=== PATIENT | male | born 1985 | race African-American/Black ===

== ENCOUNTER 2016-08-29 21:10 | Emergency (ER) | payer MEDICAID ==
[2016-08-29 21:15] VITALS: BP 130/75
[2016-08-29] MEDS ORDERED: predniSONE 20 MG TABLET PO STA (21:20)
[2016-08-29] MEDS ORDERED: IPRATROPIUM/ALBUTEROL 3 ML NEB INH STA (21:20)
--- NOTE | 2016-08-29 21:21 | ED Physician Documentation ---
PD HPI DYSPNEA - Stated complaint Stated Complaint: SOA - Chief complaint Chief Complaint: Resp - History obtained from History obtained from: Patient - History of Present Illness Timing - onset: Other (31-year-old with history of asthma, over the last few days because of environmental allergens and mowing the grass has gotten steadily worse culminating tonight in significant shortness of breath and a few episodes of posttussive emesis with white sputum but no fevers. He has been hospitalized for asthma before, but only as a child. On the daily basis he takes Advair and occasional albuterol.) Review of Systems Ten Systems: 10 systems reviewed and negative Constitutional: denies: Fever, Chills Nose: denies: Rhinorrhea / runny nose, Congestion Throat: denies: Sore throat Cardiac: denies: Chest pain / pressure, Palpitations, Pedal edema, Calf pain Respiratory: reports: Dyspnea, Cough. denies: Hemoptysis, Wheezing PD PAST MEDICAL HISTORY - Past Medical History Respiratory: Asthma - Past Surgical History Past Surgical History: Yes Ortho: Other - Present Medications Home Medications: Ambulatory Orders Medication Instructions Recorded Confirmed Albuterol Sulfate [Albuterol 2 puffs IH Q4HR PRN #1 [email or web address] 04/17/14 12/07/15 Sulfate Hfa] Fluticasone/Salmeterol 250/50 1 puffs INH BID #1 inhaler 11/13/14 12/07/15 [Advair 250 Mcg/50 Mcg] Albuterol Sulfate [Proventil Hfa 1 - 2 puffs INH Q4H PRN #1 inhaler 12/07/15 Inhaler] Cetirizine [ZyrTEC] 1 tab PO DAILY 12/07/15 12/07/15 predniSONE [Deltasone] 60 mg PO DAILY 5 Days 08/29/16 - Allergies Allergies/Adverse Reactions: Allergies Allergy/AdvReac Type Severity Reaction Status Date / Time No Known Drug Allergies Allergy Verified 12/07/15 09:52 - Social History Does the pt smoke?: No Smoking Status: Never smoker Does the pt drink ETOH?: Yes Does the pt have substance abuse?: Yes - Family History Family history: reports: Non contributory - Immunizations Immunizations are current?: Yes - POLST Patient has POLST: No PD ED PE NORMAL - Vitals Vital signs reviewed: Yes - General General: Alert and oriented X 3, Other (Breathing pretty hard but speaking full sentences) - HEENT HEENT: PERRL, Pharynx benign - Neck Neck: Supple, no meningeal sign, No bony TTP - Cardiac Cardiac: RRR, No murmur - Respiratory Respiratory: Other (Diminished throughout with mild respiratory distress) - Abdomen Abdomen: Soft, Non tender - Back Back: No CVA TTP, No spinal TTP - Derm Derm: Normal color, Warm and dry - Extremities Extremities: No edema, No calf tenderness / cord - Neuro Neuro: Alert and oriented X 3, Normal speech - Psych Psych: Normal mood, Normal affect Results - Vitals Vitals: Vital Signs - 24 hr 08/29/16 08/29/16 08/29/16 21:12 21:23 21:25 Temperature 36.9 C Heart Rate 97 121 H 105 H Respiratory 36 H 24 Rate Blood Pressure 130/75 O2 Saturation 100 88 L 08/29/16 08/29/16 21:50 22:14 Temperature Heart Rate 100 104 H Respiratory 22 18 Rate Blood Pressure O2 Saturation 94 Oxygen O2 Source Room air PD MEDICAL DECISION MAKING - ED course ED course: This 31-year-old gentleman presents with an asthma exacerbation. He was administered a duo neb with significant improvement but still pretty tight on exam and after a second, albuterol, with good better, no respiratory distress, and only very mild wheeze on exam with good air motion. Departure - Departure Disposition: 01 Home, Self Care Clinical Impression: Asthma exacerbation Condition: Good Record reviewed to determine appropriate education?: Yes Instructions: Asthma Dc Prescriptions: predniSONE [Deltasone] 60 mg PO DAILY 5 Days Comments: Call your doctor to arrange a follow up appointment. Make the next available appointment. In the interim return anytime if worse or if new symptoms develop.
[2016-08-29] MEDS ORDERED: IPRATROPIUM/ALBUTEROL 3 ML NEB INH ONE (21:23)
[2016-08-29] MEDS ORDERED: predniSONE 20 MG TABLET ONE (21:25)
[2016-08-29] MEDS ORDERED: ALBUTEROL NEB 2.5 MG/3 ML INH STA (21:47)
[2016-08-29] MEDS ORDERED: ALBUTEROL NEB 2.5 MG/3 ML INH ONE (21:48)
== END 2016-08-29 22:39 | disposition home or self-care (01) ==
LOC: ED 21:10
DX: J45.901 Unspecified asthma with (acute) exacerbation (principal)
CPT/HCPCS: 94640; 99283; 99284; J7512; J7613; J7620

== ENCOUNTER 2016-09-23 14:58 | Outpatient (CLI) | payer MEDICAID ==
[2016-09-23 18:51] LABS: BASOPHILS % (AUTO) 0.7 %; EOSINOPHILS # (AUTO) 0.4 10^3/uL (0.0-0.7); EOSINOPHILS % (AUTO) 6.4 %; HCT - HEMATOCRIT 41.1 % (42.0-52.0); HGB - HEMOGLOBIN 13.9 g/dL (14.0-18.0); LYMPHOCYTES # (AUTO) 1.4 10^3/uL (1.5-3.5); LYMPHOCYTES % (AUTO) 21.3 %; MEAN CORPUSCULAR HEMOGLOBIN 29.7 pg (27.0-31.0); MEAN CORPUSCULAR HGB CONC 33.7 g/dL (32.0-36.0); MEAN PLATELET VOLUME 8.5 fL (7.4-11.4); MONOCYTES # (AUTO) 0.4 10^3/uL (0.0-1.0); MONOCYTES % (AUTO) 6.2 %; NEUTROPHILS # (AUTO) 4.5 10^3/uL (1.5-6.6); NEUTROPHILS % (AUTO) 65.4 %; NUCLEATED RED BLOOD CELLS AUTO 0.2 /100WBC; RED BLOOD COUNT 4.67 10^6/uL (4.70-6.10); RED CELL DISTRIBUTION WIDTH 12.6 % (12.0-15.0); UNCORRECTED WHITE BLOOD COUNT 6.8 x10^3/uL; WHITE BLOOD COUNT 6.8 x10^3/uL (4.8-10.8)
[2016-09-23 19:07] LABS: ALBUMIN/GLOBULIN RATIO 1.3 (1.0-2.2); BILIRUBIN,TOTAL 0.5 mg/dL (0.2-1.0); BUN - BLOOD UREA NITROGEN 16 mg/dL (6-20); CALCIUM 9.6 mg/dL (8.5-10.3); CARBON DIOXIDE - CO2 24 mmol/L (21-32); CHLORIDE 106 mmol/L (101-111); CHOL/HDL RATIO 3.1 (<5.0); CHOLESTEROL 168 mg/dL; CREATININE 0.9 mg/dL (0.6-1.2); GFR - MDRD 121 (>89); GLUCOSE 87 mg/dL (70-100); HDL CHOLESTEROL 55 mg/dL; LDL/HDL RATIO 1.8 (<3.6); POTASSIUM 3.8 mmol/L (3.5-5.0); SODIUM 139 mmol/L (135-145); TOTAL PROTEIN 8.2 g/dL (6.7-8.2); TRIGLYCERIDES 78 mg/dL; VLDL CHOLESTEROL 16 mg/dL
== END 2016-09-23 14:59 | disposition home or self-care (01) ==
LOC: LAB.N 14:58
PROVIDERS: ATTEND Physician Assistant
DX: I10 Essential (primary) hypertension (principal)
CPT/HCPCS: 36415; 80050; 80061

== ENCOUNTER 2017-11-22 22:26 | Emergency (ER) | payer MEDICAID ==
--- NOTE | 2017-11-22 22:44 | ED Physician Documentation ---
PD HPI DYSPNEA - Stated complaint Stated Complaint: SOA - Chief complaint Chief Complaint: Resp - History obtained from History obtained from: Patient - History of Present Illness Timing - onset: Today Timing - details: Gradual onset Pain level max: 0 Pain level now: 0 Improved by: Rest Worsened by: Exertion Associated symptoms: Cough, Wheezing. No: Fever Similar symptoms before: Diagnosis (asthma) Recently seen: Not recently seen - Additional information Additional information: c/o dyspnea, wheezing c/w asthma exacerbation. not responding to MDI (albuterol) Review of Systems Constitutional: reports: Reviewed and negative Nose: reports: Rhinorrhea / runny nose, Congestion Throat: denies: Sore throat Cardiac: reports: Reviewed and negative Respiratory: reports: Dyspnea, Cough, Wheezing GI: reports: Reviewed and negative PD PAST MEDICAL HISTORY - Past Medical History Respiratory: Asthma - Past Surgical History Past Surgical History: Yes Ortho: Other - Present Medications Home Medications: Ambulatory Orders Medication Instructions Recorded Confirmed Albuterol Sulfate [Albuterol 2 puffs IH Q4HR PRN #1 [email or web address] 04/17/14 12/07/15 Sulfate Hfa] Fluticasone/Salmeterol 250/50 1 puffs INH BID #1 inhaler 11/13/14 12/07/15 [Advair 250 Mcg/50 Mcg] Albuterol Sulfate [Proventil Hfa 1 - 2 puffs INH Q4H PRN #1 inhaler 12/07/15 Inhaler] Cetirizine [ZyrTEC] 1 tab PO DAILY 12/07/15 12/07/15 predniSONE [Deltasone] 60 mg PO DAILY 5 Days tablet 08/29/16 Albuterol 2.5 mg INH Q4H PRN #30 neb 11/22/17 predniSONE [Prednisone] 40 mg PO DAILY #8 tablet 11/22/17 - Allergies Allergies/Adverse Reactions: Allergies Allergy/AdvReac Type Severity Reaction Status Date / Time No Known Drug Allergies Allergy Verified 12/07/15 09:52 - Social History Does the pt smoke?: No Smoking Status: Never smoker Does the pt drink ETOH?: Yes Does the pt have substance abuse?: Yes - Immunizations Immunizations are current?: Yes - POLST Patient has POLST: No PD ED PE NORMAL - Vitals Vital signs reviewed: Yes - General General: Alert and oriented X 3, No acute distress, Well developed/nourished - Cardiac Cardiac: RRR, No murmur - Respiratory Respiratory: No respiratory distress - Extremities Extremities: No edema PD ED PE EXPANDED - Respiratory Respiratory: Wheezing (I/E wheezing bilaterally) Results - Vitals Vitals: Oxygen O2 Source Room air - Rads (name of study) chest xray Radiology: Prelim report reviewed, See rad report PD MEDICAL DECISION MAKING - ED course Complexity details: reviewed results, re-evaluated patient, considered differential, d/w patient ED course: patient reported significant improvement after duoneb, prednisone. reexam of lungs reveals end-expiratory wheezing bilaterally but good aeration and significantly less wheezing than on presentation - Sepsis Event Vital Signs: Oxygen O2 Source Room air Departure - Departure Disposition: 01 Home, Self Care Clinical Impression: Asthma Condition: Good Instructions: ED Reactive Airway Disease, ED Inhaler Use Prescriptions: Albuterol 2.5 mg INH Q4H PRN #30 neb PRN Reason: Wheezing predniSONE [Prednisone] 40 mg PO DAILY #8 tablet Forms: Activity restrictions Discharge Date/Time: 11/23/17 00:05
[2017-11-22] MEDS ORDERED: predniSONE 20 MG TABLET PO STA (22:53)
[2017-11-22] MEDS ORDERED: IPRATROPIUM/ALBUTEROL 3 ML NEB INH STA (22:53)
--- NOTE | 2017-11-22 23:30 | XRAY Report ---
Reason: cough, fever Procedure Date: 11/22/2017 Accession Number: [id number] / [id number] Procedure: XR - Chest 2 View X-Ray CPT Code: 20806 FULL RESULT: EXAM: CHEST RADIOGRAPHY EXAM DATE: 11/22/2017 11:07 PM. CLINICAL HISTORY: Cough, fever. COMPARISON: None. TECHNIQUE: 2 views. FINDINGS: Lungs/Pleura: No focal opacities evident. No pleural effusion. No pneumothorax. Normal volumes. Mediastinum: Heart and mediastinal contours are unremarkable. Other: None. IMPRESSION: Normal 2-view chest radiography. RADIA
[2017-11-23 00:06] VITALS: BP 132/77
== END 2017-11-23 00:05 | disposition home or self-care (01) ==
LOC: ED 22:26
DX: J45.909 Unspecified asthma, uncomplicated (principal)
CPT/HCPCS: 71046; 94640; 99283; J7512

== ENCOUNTER 2018-06-17 18:26 | Emergency (ER) | payer MEDICAID ==
[2018-06-17 18:36] VITALS: BP 136/87
--- NOTE | 2018-06-17 18:49 | ED Physician Documentation ---
History of Present Illness - Stated complaint Stated Complaint: FEVER/COUGH/ABD PX - Chief complaint Chief Complaint: Heent - History obtained from History obtained from: Patient - History of Present Illness Timing: Yesterday - Additonal information Additional information: Patient is a previously healthy 33-year-old male presenting with concern for flu. Patient reports that his daughter was diagnosed with the flu several days ago and yesterday he began to experience fever of greater than 101 and 102 that he treated with Tylenol, as well as general muscle aches, dry cough, upset stomach, and sore throat. Most of his symptoms have subsided. Patient denies headache, rhinorrhea, nasal congestion, ear pain, vomiting, urinary changes, stool changes, or rash.There are no known improving or worsening factors to his symptoms. Review of Systems Constitutional: reports: Fever, Myalgias PD PAST MEDICAL HISTORY - Past Medical History Respiratory: Asthma - Past Surgical History Past Surgical History: Yes Ortho: Other - Present Medications Home Medications: Ambulatory Orders Medication Instructions Recorded Confirmed Albuterol Sulfate [Albuterol 2 puffs IH Q4HR PRN #1 hfa.[email or web address] 04/17/14 12/07/15 Sulfate Hfa] Fluticasone/Salmeterol 250/50 1 puffs INH BID #1 inhaler 11/13/14 12/07/15 [Advair 250 Mcg/50 Mcg] Albuterol Sulfate [Proventil Hfa 1 - 2 puffs INH Q4H PRN #1 inhaler 12/07/15 Inhaler] Cetirizine [ZyrTEC] 1 tab PO DAILY 12/07/15 12/07/15 RX: predniSONE [Deltasone] 60 mg PO DAILY 5 Days tablet 08/29/16 RX: Albuterol 2.5 mg INH Q4H PRN #30 neb 11/22/17 predniSONE [Prednisone] 40 mg PO DAILY #8 tablet 11/22/17 Oseltamivir [Tamiflu] 75 mg PO BID #10 capsule 06/17/18 - Allergies Allergies/Adverse Reactions: Allergies Allergy/AdvReac Type Severity Reaction Status Date / Time No Known Drug Allergies Allergy Verified 12/07/15 09:52 - Social History Does the pt smoke?: No Smoking Status: Never smoker Does the pt drink ETOH?: Yes Does the pt have substance abuse?: Yes - Immunizations Immunizations are current?: Yes - POLST Patient has POLST: No PD ED PE NORMAL - General General: Alert and oriented X 3, No acute distress, Well developed/nourished - HEENT HEENT: Atraumatic, PERRL, Moist mucous membranes, Pharynx benign - Neck Neck: Supple, no meningeal sign - Cardiac Cardiac: RRR, No murmur - Respiratory Respiratory: No respiratory distress, Clear bilaterally - Abdomen Abdomen: Normal bowel sounds, Soft, Non tender, Non distended - Extremities Extremities: No deformity, No tenderness to palpate - Neuro Neuro: Alert and oriented X 3, No motor deficit, No sensory deficit - Psych Psych: Normal mood, Normal affect Results - Vitals Vitals: Vital Signs - 24 hr 06/17/18 18:34 Temperature 37.0 C Heart Rate 117 H Respiratory 18 Rate Blood Pressure 136/87 H O2 Saturation 94 Oxygen O2 Source Room air - Labs Labs: Laboratory Tests 06/17/18 18:40 Influenza A (Rapid) Negative Influenza B (Rapid) Negative PD MEDICAL DECISION MAKING - ED course Complexity details: reviewed results, considered differential, d/w patient ED course: Patient presenting with concern for flu, particularly as his daughter had recent diagnosis. Patient describes viral-like syndrome, particularly URI or bronchitis. Have lower suspicion for pneumonia or other intra-abdominal pathology. No other obvious signs of infectious process, particularly bacterial infection on exam. Flu swab returned negative, but given patient's symptomatology and recent exposure, offered Tamiflu as he would still be in the treatment window for such. However, described limitations and side effects of Tamiflu. Also Discussed supportive cares, return precautions, and appropriate follow-up. Patient voiced understanding and is comfortable with plan. Departure - Departure Disposition: 01 Home, Self Care Clinical Impression: Viral illness Condition: Good Instructions: ED Viral Syndrome Follow-Up: your,doctor [Other] - Within 3 Days Prescriptions: Oseltamivir [Tamiflu] 75 mg PO BID #10 capsule Comments: May take Tamiflu as prescribed for influenza treatment. Also recommend other supportive cares including ibuprofen/Tylenol, hydration, rest, and follow-up with primary care physician. If symptoms worsen or you have other concerns, please return to the ED immediately. Discharge Date/Time: 06/17/18 19:08
== END 2018-06-17 19:08 | disposition home or self-care (01) ==
LOC: ED 18:26
DX: B34.9 Viral infection, unspecified (principal)
CPT/HCPCS: 87275; 87276; 99283

== ENCOUNTER 2019-01-29 12:11 | Outpatient (CLI) | payer MEDICAID ==
[2019-01-29 18:41] LABS: ALBUMIN 4.5 g/dL (3.2-5.5); ALBUMIN/GLOBULIN RATIO 1.3 (1.0-2.2); ALKALINE PHOSPHATASE 47 IU/L (42-121); ALT ALANINE AMINOTRANSFERASE 44 IU/L (10-60); AST ASPARTATE AMINOTRANSFERASE 23 IU/L (10-42); BILIRUBIN,TOTAL 0.6 mg/dL (0.2-1.0); BUN - BLOOD UREA NITROGEN 14 mg/dL (6-20); CALCIUM 9.3 mg/dL (8.5-10.3); CARBON DIOXIDE - CO2 29 mmol/L (21-32); CHLORIDE 102 mmol/L (101-111); CHOL/HDL RATIO 3.3 (<5.0); CHOLESTEROL 192 mg/dL; CREATININE 0.9 mg/dL (0.6-1.2); GFR - MDRD 119 (>89); GLUCOSE 106 mg/dL (70-100); HDL CHOLESTEROL 59 mg/dL; LDL CHOLESTEROL,CALCULATED 115 mg/dL; LDL/HDL RATIO 1.9 (<3.6); SODIUM 138 mmol/L (135-145); TOTAL PROTEIN 8.1 g/dL (6.7-8.2); VLDL CHOLESTEROL 18 mg/dL
== END 2019-01-29 23:59 | disposition home or self-care (01) ==
LOC: LAB.N 12:11
PROVIDERS: ATTEND Nurse Practitioner Gerontology
DX: I10 Essential (primary) hypertension (principal); Z13.9 Encounter for screening, unspecified
CPT/HCPCS: 36415; 80053; 80061; 83721

== ENCOUNTER 2019-03-25 08:34 | Emergency (ER) | payer MEDICAID ==
[2019-03-25 08:42] VITALS: BP 127/104
--- NOTE | 2019-03-25 09:15 | ED Physician Documentation ---
History of Present Illness - Stated complaint Stated Complaint: LT EAR PRESSURE - Chief complaint Chief Complaint: Heent - Additonal information Additional information: This is a 34-year-old male with a history of asthma who presents with left ear pressure. Patient has had cough and congestion and runny nose for several days but yesterday at work he began having some pressure in his left ear and his hearing feels very muffled. He has not had a measured fever, he is not any drainage from the ear. Review of Systems Ears: reports: Ear pain Nose: reports: Rhinorrhea / runny nose Respiratory: reports: Cough PD PAST MEDICAL HISTORY - Past Medical History Cardiovascular: Hypertension Respiratory: Asthma Endocrine/Autoimmune: None GI: None : None Psych: Anxiety Musculoskeletal: None - Past Surgical History Past Surgical History: Yes Ortho: Other - Present Medications Home Medications: Ambulatory Orders Medication Instructions Recorded Confirmed Fluticasone/Salmeterol 250/50 1 puffs INH BID #1 inhaler 11/13/14 03/25/19 [Advair 250 Mcg/50 Mcg] Albuterol Sulfate [Proventil Hfa 1 - 2 puffs INH Q4H PRN #1 inhaler 12/07/15 03/25/19 Inhaler] Cetirizine [ZyrTEC] 1 tab PO DAILY 12/07/15 03/25/19 Amoxicillin 500 mg PO BID #14 capsule 03/25/19 Benzonatate [Tessalon Perle] 100 - 200 mg PO TID PRN #30 capsule 03/25/19 hydroCHLOROthiazide 25 mg PO DAILY 03/25/19 03/25/19 [Hydrochlorothiazide] - Allergies Allergies/Adverse Reactions: Allergies Allergy/AdvReac Type Severity Reaction Status Date / Time No Known Drug Allergies Allergy Verified 03/25/19 08:40 - Social History Does the pt smoke?: No Smoking Status: Former smoker Does the pt drink ETOH?: Yes Does the pt have substance abuse?: Yes Substance Use and Type: Marijuana - Immunizations Immunizations are current?: Yes - POLST Patient has POLST: No PD ED PE NORMAL - Vitals Vital signs reviewed: Yes - General General: Alert and oriented X 3 - HEENT HEENT: PERRL, Other (Left tympanic membrane is opaque, erythematous, and slightly bulging. Right tympanic membrane is flat and clear. Bilateral external canals are normal in appearance) - Neck Neck: Supple, no meningeal sign - Cardiac Cardiac: RRR - Respiratory Respiratory: No respiratory distress, Clear bilaterally, Other (Intermittent cough) - Abdomen Abdomen: Non distended - Extremities Extremities: No deformity - Neuro Neuro: Alert and oriented X 3 Results - Vitals Vitals: Vital Signs - 24 hr 03/25/19 08:40 Temperature 37.2 C Heart Rate 82 Respiratory 18 Rate Blood Pressure 127/104 H O2 Saturation 97 Oxygen O2 Source Room air PD MEDICAL DECISION MAKING - ED course Complexity details: re-evaluated patient ED course: Patient is well-appearing on examination, he does have an obvious left otitis media which appears suppurative. I discussed treatment with antibiotics and decongestants, I also reviewed return precautions and primary care follow-up. Patient agreed this plan and was discharged home. Departure - Departure Disposition: , Self Care Clinical Impression: Otitis media Qualifiers: Otitis media type: suppurative Chronicity: acute Laterality: left Recurrence: not specified as recurrent Spontaneous tympanic membrane rupture: without spontaneous rupture Qualified Code(s): H66.002 - Acute suppurative otitis media without spontaneous rupture of ear drum, left ear Condition: Good Instructions: ED Otitis Media Acute Adult Follow-Up: Joanne Bedoya ARNP [Primary Care Provider] - Prescriptions: Amoxicillin 500 mg PO BID #14 capsule Benzonatate [Tessalon Perle] 100 - 200 mg PO TID PRN #30 capsule PRN Reason: Cough Comments: You appear to have a ear infection on the left side, if you are having persistent symptoms despite the antibiotic, follow-up with your primary care provider, with new or concerning symptoms return to the emergency department. You may also try a decongestant such as Benadryl or phenylephrine which can be obtained [id number], this may help with the nasal congestion as well Discharge Date/Time: 03/25/19 09:22
== END 2019-03-25 09:22 | disposition home or self-care (01) ==
LOC: ED 08:34
DX: H66.002 Acute suppurative otitis media without spontaneous rupture of ear drum, left ear (principal); I10 Essential (primary) hypertension; Z87.891 Personal history of nicotine dependence
CPT/HCPCS: 99282; 99283

== ENCOUNTER 2019-04-06 06:51 | Emergency (ER) | payer MEDICAID ==
[2019-04-06 07:03] VITALS: BP 169/91
[2019-04-06 07:19] LABS: RAPID STREP SCREEN Negative (Negative)
[2019-04-06] MEDS ORDERED: DEXAMETHASONE 10 MG/ML VIAL PO STA (07:49)
[2019-04-06] MEDS ORDERED: CHERRY SYRUP 10 ML UDC PO ONE (07:49)
--- NOTE | 2019-04-06 07:52 | ED Physician Documentation ---
PD HPI HEENT - Stated complaint Stated Complaint: SORE THROAT - Chief complaint Chief Complaint: Heent - History obtained from History obtained from: Patient - History of Present Illness Timing - onset: Yesterday Timing - duration: Days (1) Timing - details: Gradual onset, Still present Location: Throat Improves: Medication Worsens: Swalllowing Associated symptoms: Congestion, Rhinorrhea, Cough Similar symptoms before: Diagnosis (swollen uvula) Recently seen: Emergency Dept - Additional information Additional information: 34-year-old male with a history of asthma has had a recent otitis he was treated with amoxicillin and seemed to get better and he has now developed swelling to his uvula which he states he has had several times previously. He has a bit of a sore throat with this she is got a bit of a cough he did not have to use his inhaler prior to coming in here. Review of Systems Constitutional: denies: Fever Eyes: denies: Decreased vision Ears: denies: Ear pain Nose: reports: Rhinorrhea / runny nose, Congestion Throat: reports: Sore throat Cardiac: denies: Chest pain / pressure, Palpitations Respiratory: reports: Cough. denies: Dyspnea GI: denies: Vomiting PD PAST MEDICAL HISTORY - Past Medical History Past Medical History: Yes Cardiovascular: Hypertension Respiratory: Asthma Neuro: None Endocrine/Autoimmune: None GI: None : None HEENT: None Psych: Anxiety Musculoskeletal: None Derm: None - Past Surgical History Past Surgical History: Yes Ortho: Other - Present Medications Home Medications: Ambulatory Orders Medication Instructions Recorded Confirmed Fluticasone/Salmeterol 250/50 1 puffs INH BID #1 inhaler 11/13/14 03/25/19 [Advair 250 Mcg/50 Mcg] Albuterol Sulfate [Proventil Hfa 1 - 2 puffs INH Q4H PRN #1 inhaler 12/07/15 03/25/19 Inhaler] Cetirizine [ZyrTEC] 1 tab PO DAILY 12/07/15 03/25/19 Amoxicillin 500 mg PO BID #14 capsule 03/25/19 Benzonatate [Tessalon Perle] 100 - 200 mg PO TID PRN #30 capsule 03/25/19 hydroCHLOROthiazide 25 mg PO DAILY 03/25/19 03/25/19 [Hydrochlorothiazide] Azithromycin [Zithromax] 250 mg PO DAILY #6 tablet 04/06/19 - Allergies Allergies/Adverse Reactions: Allergies Allergy/AdvReac Type Severity Reaction Status Date / Time No Known Drug Allergies Allergy Verified 04/06/19 07:03 - Social History Does the pt smoke?: No Smoking Status: Never smoker Does the pt drink ETOH?: Yes Does the pt have substance abuse?: Yes - Immunizations Immunizations are current?: Yes - POLST Patient has POLST: No PD ED PE NORMAL - Vitals Vital signs reviewed: Yes (hypertensive) - General General: Alert and oriented X 3, No acute distress, Well developed/nourished - HEENT HEENT: Atraumatic, PERRL, EOMI, Other (both TM's are inflamed with proud umbo's and the uvular is swollen and elongated. ) - Neck Neck: Supple, no meningeal sign, No bony TTP - Cardiac Cardiac: RRR, No murmur - Respiratory Respiratory: No respiratory distress, Other (diminished but clear breath sounds. ) - Abdomen Abdomen: Soft, Non tender - Back Back: No CVA TTP, No spinal TTP - Derm Derm: Normal color, Warm and dry, No rash - Extremities Extremities: No deformity, No edema, No calf tenderness / cord - Neuro Neuro: Alert and oriented X 3, clinical microbiologist 2-12 intact, No motor deficit, No sensory deficit, Normal speech Eye Opening: Spontaneous Motor: Obeys Commands Verbal: Oriented GCS Score: 15 - Psych Psych: Normal mood, Normal affect Results - Vitals Vitals: Vital Signs - 24 hr 04/06/19 07:01 Temperature 36.5 C Heart Rate 74 Respiratory 17 Rate Blood Pressure 169/91 H O2 Saturation 97 Oxygen O2 Source Room air - Labs Labs: Laboratory Tests 04/06/19 07:00 Group A Strep Rapid Negative PD MEDICAL DECISION MAKING - ED course Complexity details: reviewed old records, reviewed results, considered differential, d/w patient ED course: 34-year-old male with cough and congestion has otitis on exam and he has a swollen elongated uvula as well. I suspect this is secondary to postnasal drainage and he is administered dexamethasone 10 mg orally his rapid strep is negative. He was treated for otitis with amoxicillin 2 weeks ago and we will change his class of antibiotic to a azithromycin which she has taken successfully previously. Departure - Departure Disposition: 01 Home, Self Care Clinical Impression: Otitis media Qualifiers: Otitis media type: suppurative Chronicity: acute Laterality: bilateral Recurrence: recurrent Spontaneous tympanic membrane rupture: without spontaneous rupture Qualified Code(s): H66.006 - Acute suppurative otitis media without spontaneous rupture of ear drum, recurrent, bilateral Condition: Stable Instructions: ED Otitis Media Acute Adult Follow-Up: Joanne Bedoya ARNP [Primary Care Provider] - Prescriptions: Azithromycin [Zithromax] 250 mg PO DAILY #6 tablet Forms: Activity restrictions
== END 2019-04-06 07:59 | disposition home or self-care (01) ==
LOC: ED 06:51
DX: H66.006 Acute suppurative otitis media without spontaneous rupture of ear drum, recurrent, bilateral (principal); K13.79 Other lesions of oral mucosa; J45.909 Unspecified asthma, uncomplicated; I10 Essential (primary) hypertension
CPT/HCPCS: 87070; 87430; 99283; 99284; A9270

== ENCOUNTER 2019-04-11 11:30 | Emergency (ER) | payer MEDICAID ==
[2019-04-11 11:51] LABS: RAPID STREP SCREEN Negative (Negative)
[2019-04-11 12:24] VITALS: BP 157/105
--- NOTE | 2019-04-11 13:15 | ED Physician Documentation ---
PD HPI HEENT - Stated complaint Stated Complaint: SORE THROAT - Chief complaint Chief Complaint: Heent - History obtained from History obtained from: Patient - History of Present Illness Timing - onset: Yesterday Timing - duration: Days (1) Timing - details: Still present Location: Throat Associated symptoms: No: Fever, Congestion, Rhinorrhea, Unable to swallow - Additional information Additional information: This is a 34-year-old man who presents with his complaints that he had an ear infection that drained and then it went into his throat so he was prescribed a Z-Milton which he just finished day before yesterday. The pain started to return in his throat yesterday. He did do some salt water gargles and now his uvula is swollen. He thinks the pain is more to the left tonsillar region. No fever. No earache. No nasal congestion. He is on a blood pressure medication but says it is hydrochlorothiazide and does not contain an DILLON inhibitor. Review of Systems Constitutional: denies: Fever Ears: denies: Ear pain Nose: denies: Rhinorrhea / runny nose, Congestion Throat: reports: Sore throat Respiratory: denies: Cough PD PAST MEDICAL HISTORY - Past Medical History Cardiovascular: Hypertension Respiratory: Asthma Neuro: None Endocrine/Autoimmune: None GI: None : None HEENT: None Psych: Anxiety Musculoskeletal: None Derm: None - Past Surgical History Past Surgical History: Yes Ortho: Other - Present Medications Home Medications: Ambulatory Orders Medication Instructions Recorded Confirmed Fluticasone/Salmeterol 250/50 1 puffs INH BID #1 inhaler 11/13/14 03/25/19 [Advair 250 Mcg/50 Mcg] Albuterol Sulfate [Proventil Hfa 1 - 2 puffs INH Q4H PRN #1 inhaler 12/07/15 03/25/19 Inhaler] Cetirizine [ZyrTEC] 1 tab PO DAILY 12/07/15 03/25/19 Amoxicillin 500 mg PO BID #14 capsule 03/25/19 Benzonatate [Tessalon Perle] 100 - 200 mg PO TID PRN #30 capsule 03/25/19 hydroCHLOROthiazide 25 mg PO DAILY 03/25/19 03/25/19 [Hydrochlorothiazide] Azithromycin [Zithromax] 250 mg PO DAILY #6 tablet 04/06/19 - Allergies Allergies/Adverse Reactions: Allergies Allergy/AdvReac Type Severity Reaction Status Date / Time No Known Drug Allergies Allergy Verified 04/11/19 11:34 - Social History Does the pt smoke?: No Smoking Status: Former smoker Does the pt drink ETOH?: Yes Does the pt have substance abuse?: Yes Substance Use and Type: Marijuana - Immunizations Immunizations are current?: Yes - POLST Patient has POLST: No PD ED PE NORMAL - Vitals Vital signs reviewed: Yes - General General: Alert and oriented X 3, No acute distress, Well developed/nourished - HEENT HEENT: Atraumatic, PERRL, EOMI, Ears normal, Moist mucous membranes, Pharynx benign, Other (The uvula is mildly edematous and narrow touching the back of the tongue. There is no tonsillar pillar erythema or asymmetry. There is no tonsillar enlargement or exudate.) - Neck Neck: Supple, no meningeal sign, No adenopathy - Cardiac Cardiac: RRR - Respiratory Respiratory: No respiratory distress Results - Vitals Vitals: Vital Signs - 24 hr 04/11/19 04/11/19 11:34 12:23 Temperature 36.9 C 36.7 C Heart Rate 79 80 Respiratory 16 18 Rate Blood Pressure 167/94 H 157/105 H O2 Saturation 98 97 Oxygen O2 Source Room air - Labs Labs: Laboratory Tests 04/11/19 11:37 Group A Strep Rapid Negative PD MEDICAL DECISION MAKING - ED course Complexity details: reviewed results, d/w patient ED course: No indication for antibiotics at this time. Have asked him to contact his primary care provider and ensure that he is not on a DILLON inhibitor causing the angioedema. Stop gargling. Use liquid Benadryl can help as a topical anesthetic to help with the sore throat and possibly help with the angioedema. Return if worsening swelling in the throat, increasing pain and inability to swallow difficulty breathing or other problems arise. Departure - Departure Disposition: 01 Home, Self Care Clinical Impression: Sore throat Angioedema Qualifiers: Encounter type: initial encounter Qualified Code(s): T78.3XXA - Angioneurotic edema, initial encounter Condition: Good Instructions: ED Uvulitis, ED Angioedema Follow-Up: Joanne Bedoya ARNP [Primary Care Provider] - Comments: May use liquid Benadryl as a topical anesthetic and to see if it helps the swelling of the uvula. Avoid gargling. We will contact you with the culture results and start antibiotics if warranted. Contact your primary care provider to make sure that you are not taking an DILLON inhibitor which should be stopped immediately if you are. Return if you have increasing pain, difficulty swallowing, difficulty breathing, fever or other problems arise.
== END 2019-04-11 13:57 | disposition home or self-care (01) ==
LOC: ED 11:30
DX: J02.9 Acute pharyngitis, unspecified (principal); T78.3XXA Angioneurotic edema, initial encounter; I10 Essential (primary) hypertension; Z87.891 Personal history of nicotine dependence
CPT/HCPCS: 87070; 87430; 99283; 99284

== ENCOUNTER 2019-04-14 12:03 | Emergency (ER) | payer MEDICAID ==
[2019-04-14 12:10] VITALS: BP 146/90
[2019-04-14] MEDS ORDERED: ALBUTEROL NEB 2.5 MG/3 ML INH STA (12:42)
[2019-04-14] MEDS ORDERED: IPRATROPIUM/ALBUTEROL 3 ML NEB INH STA (12:42)
[2019-04-14] MEDS ORDERED: predniSONE 20 MG TABLET PO STA (12:42)
--- NOTE | 2019-04-14 12:44 | ED Physician Documentation ---
PD HPI DYSPNEA - Stated complaint Stated Complaint: SOA - Chief complaint Chief Complaint: Resp - History obtained from History obtained from: Patient - History of Present Illness Timing - onset: Other (34-year-old gentleman with asthma, on a normal day (when he is not ill) he will use an inhaler a couple of times and takes low-dose Advair. Trigger includes recent URI, was on a Z-Milton recently. Does not remember the last time he was on steroids. He has been admitted for his asthma but not in the last 15 years or so. Never in ICU. He has been short of breath since yesterday and has been using his nebulizer a lot without much relief. He has a cough but is nonproductive. No fevers.) Review of Systems Constitutional: denies: Fever, Chills Nose: reports: Rhinorrhea / runny nose Throat: denies: Sore throat (better now) Cardiac: denies: Chest pain / pressure, Palpitations Respiratory: reports: Dyspnea, Cough, Wheezing. denies: Hemoptysis PD PAST MEDICAL HISTORY - Past Medical History Past Medical History: Yes Cardiovascular: Hypertension Respiratory: Asthma Neuro: None Endocrine/Autoimmune: None GI: None : None HEENT: None Psych: Anxiety Musculoskeletal: None Derm: None - Past Surgical History Past Surgical History: Yes Ortho: Other - Present Medications Home Medications: Ambulatory Orders Medication Instructions Recorded Confirmed Fluticasone/Salmeterol 250/50 1 puffs INH BID #1 inhaler 11/13/14 03/25/19 [Advair 250 Mcg/50 Mcg] Albuterol Sulfate [Proventil Hfa 1 - 2 puffs INH Q4H PRN #1 inhaler 12/07/15 03/25/19 Inhaler] Cetirizine [ZyrTEC] 1 tab PO DAILY 12/07/15 03/25/19 Benzonatate [Tessalon Perle] 100 - 200 mg PO TID PRN #30 capsule 03/25/19 hydroCHLOROthiazide 25 mg PO DAILY 03/25/19 03/25/19 [Hydrochlorothiazide] Albuterol 2.5 mg INH Q4H PRN #30 neb 04/14/19 Ipratropium/Albuterol [Duoneb] 3 ml INH Q6H PRN #1 b 04/14/19 predniSONE [Deltasone] 20 mg PO [id number] #21 tab 04/14/19 - Allergies Allergies/Adverse Reactions: Allergies Allergy/AdvReac Type Severity Reaction Status Date / Time No Known Drug Allergies Allergy Verified 04/14/19 12:09 - Social History Does the pt smoke?: No Smoking Status: Never smoker Does the pt drink ETOH?: Yes Does the pt have substance abuse?: Yes - Immunizations Immunizations are current?: Yes - POLST Patient has POLST: No PD ED PE NORMAL - Vitals Vital signs reviewed: Yes - General General: Alert and oriented X 3, No acute distress - HEENT HEENT: PERRL, EOMI - Neck Neck: Supple, no meningeal sign, No bony TTP - Cardiac Cardiac: RRR, No murmur - Respiratory Respiratory: No respiratory distress, Other (Audible wheezing at the bedside, but speaking in full sentences, very diminished at the bases and wheezy in the upper lobes.) - Abdomen Abdomen: Non tender - Back Back: No CVA TTP, No spinal TTP - Derm Derm: Normal color, Warm and dry - Extremities Extremities: No edema, No calf tenderness / cord - Neuro Neuro: Alert and oriented X 3, Normal speech Results - Vitals Vitals: Vital Signs - 24 hr 04/14/19 04/14/19 12:06 13:08 Temperature 37.2 C Heart Rate 92 100 Respiratory 18 20 Rate Blood Pressure 146/90 H O2 Saturation 95 Oxygen O2 Source Room air PD MEDICAL DECISION MAKING - ED course ED course: 34-year-old gentleman presents with asthma exacerbation, no evidence of bacterial infection. After 3 nebs he was doing much better and his peak flows improved, still wheezy but requesting discharge. Close follow-up precautions were given. Departure - Departure Disposition: 01 Home, Self Care Clinical Impression: Asthma exacerbation Qualifiers: Asthma severity: moderate Asthma persistence: persistent Qualified Code(s): J45.41 - Moderate persistent asthma with (acute) exacerbation Condition: Good Record reviewed to determine appropriate education?: Yes Instructions: Asthma Dc Prescriptions: Albuterol 2.5 mg INH Q4H PRN #30 neb PRN Reason: Wheezing Ipratropium/Albuterol [Duoneb] 3 ml INH Q6H PRN #1 b PRN Reason: Wheezing predniSONE [Deltasone] 20 mg PO [id number] #21 tab Comments: Call your doctor to arrange a follow-up appointment, make the next available appointment. In the interim, return anytime if worse or if new symptoms develop. Forms: Activity restrictions Discharge Date/Time: 04/14/19 13:39
== END 2019-04-14 13:39 | disposition home or self-care (01) ==
LOC: ED 12:03
DX: J45.41 Moderate persistent asthma with (acute) exacerbation (principal); I10 Essential (primary) hypertension
CPT/HCPCS: 94150; 94640; 94664; 99283; J7512

== ENCOUNTER 2019-04-28 16:22 | Emergency (ER) | payer MEDICAID ==
[2019-04-28 16:30] VITALS: BP 136/102
--- NOTE | 2019-04-28 16:44 | ED Physician Documentation ---
PD HPI HEENT - Stated complaint Stated Complaint: LT EAR PX - Chief complaint Chief Complaint: Heent - History obtained from History obtained from: Patient - History of Present Illness Timing - onset: Other (1 to 2 days of feeling like the left ear is clogged with poor hearing, minimal pain.) Location: Left ear Associated symptoms: Congestion. No: Fever Review of Systems Constitutional: denies: Fever Ears: reports: Loss of hearing, Ear pain. denies: Drainage/discharge, Foreign body Nose: reports: Rhinorrhea / runny nose Throat: denies: Sore throat PD PAST MEDICAL HISTORY - Past Medical History Cardiovascular: Hypertension Respiratory: Asthma Neuro: None Endocrine/Autoimmune: None GI: None : None HEENT: None Psych: Anxiety Musculoskeletal: None Derm: None - Past Surgical History Past Surgical History: Yes Ortho: Other - Present Medications Home Medications: Ambulatory Orders Medication Instructions Recorded Confirmed Fluticasone/Salmeterol 250/50 1 puffs INH BID #1 inhaler 11/13/14 03/25/19 [Advair 250 Mcg/50 Mcg] Albuterol Sulfate [Proventil Hfa 1 - 2 puffs INH Q4H PRN #1 inhaler 12/07/15 03/25/19 Inhaler] Cetirizine [ZyrTEC] 1 tab PO DAILY 12/07/15 03/25/19 Benzonatate [Tessalon Perle] 100 - 200 mg PO TID PRN #30 capsule 03/25/19 hydroCHLOROthiazide 25 mg PO DAILY 03/25/19 03/25/19 [Hydrochlorothiazide] Albuterol 2.5 mg INH Q4H PRN #30 neb 04/14/19 Ipratropium/Albuterol [Duoneb] 3 ml INH Q6H PRN #1 b 04/14/19 predniSONE [Deltasone] 20 mg PO [id number] #21 tab 04/14/19 Guaifenesin/Pseudoephedrne HCl 1 each PO BID PRN #20 tab.er.12h 04/28/19 [Mucinex D ER 600-60 mg Tablet] - Allergies Allergies/Adverse Reactions: Allergies Allergy/AdvReac Type Severity Reaction Status Date / Time No Known Drug Allergies Allergy Verified 04/14/19 12:09 - Social History Does the pt smoke?: No Smoking Status: Never smoker Does the pt drink ETOH?: Yes Does the pt have substance abuse?: Yes - Immunizations Immunizations are current?: Yes - POLST Patient has POLST: No PD ED PE NORMAL - Vitals Vital signs reviewed: Yes - General General: Alert and oriented X 3, No acute distress - HEENT HEENT: Other (Serous otitis on the left without otitis media) - Neck Neck: Supple, no meningeal sign - Neuro Neuro: Alert and oriented X 3, Normal speech Results - Vitals Vitals: Vital Signs - 24 hr 04/28/19 16:28 Temperature 36.9 C Heart Rate 77 Respiratory 18 Rate Blood Pressure 136/102 H O2 Saturation 98 Oxygen O2 Source Room air Departure - Departure Disposition: Home, Self Care Clinical Impression: Serous otitis media Qualifiers: Chronicity: acute Laterality: left Recurrence: not specified as recurrent Qualified Code(s): H65.02 - Acute serous otitis media, left ear Condition: Good Record reviewed to determine appropriate education?: Yes Instructions: ED Otitis Media Serous Adult Prescriptions: Guaifenesin/Pseudoephedrne HCl [Mucinex D ER 600-60 mg Tablet] 1 each PO BID PRN #20 tab.er.12h PRN Reason: congestion Comments: Return if you could develop more pain or fever.
== END 2019-04-28 16:47 | disposition home or self-care (01) ==
LOC: ED 16:22
DX: H65.02 Acute serous otitis media, left ear (principal); I10 Essential (primary) hypertension
CPT/HCPCS: 99282; 99283

== ENCOUNTER 2020-09-07 18:05 | Emergency (ER) | payer MEDICAID ==
[2020-09-07 18:15] VITALS: BP 181/96
--- NOTE | 2020-09-07 19:44 | ED Physician Documentation ---
PD HPI OPHTHO - Stated complaint Stated Complaint: LT EYE PX - Chief complaint Chief Complaint: Heent - History obtained from History obtained from: Patient - History of Present Illness Timing - onset: How many weeks ago (1) Timing - duration: Weeks (1) Timing - details: Gradual onset Pain level max: 3 Pain level now: 2 Location: Left Quality / character: Aching Associated symptoms: Redness, Swelling - Additional information Additional information: 35-year-old male states that he has had swelling and redness to the left lower eyelid. He was seen at the walk-in clinic and placed on erythromycin ointment. He states it is not improving. Has a referral to see an junction maker this week. No drainage. No fevers. No chills. Does not wear contacts or glasses Review of Systems Ten Systems: 10 systems reviewed and negative Constitutional: denies: Fever, Chills Eyes: denies: Decreased vision, Photophobia GI: denies: Vomiting, Diarrhea Skin: denies: Rash Musculoskeletal: denies: Neck pain, Back pain Neurologic: denies: Headache PD PAST MEDICAL HISTORY - Past Medical History Cardiovascular: Hypertension Respiratory: Asthma Neuro: None Endocrine/Autoimmune: None GI: None : None HEENT: None Psych: Anxiety Musculoskeletal: None Derm: None - Past Surgical History Past Surgical History: Yes Ortho: Other - Present Medications Home Medications: Ambulatory Orders Medication Instructions Recorded Confirmed Fluticasone/Salmeterol 250/50 1 puffs INH BID #1 inhaler 11/13/14 03/25/19 [Advair 250 Mcg/50 Mcg] Albuterol Sulfate [Proventil Hfa 1 - 2 puffs INH Q4H PRN #1 inhaler 12/07/15 03/25/19 Inhaler] Cetirizine [ZyrTEC] 1 tab PO DAILY 12/07/15 03/25/19 Benzonatate [Tessalon Perle] 100 - 200 mg PO TID PRN #30 capsule 03/25/19 hydroCHLOROthiazide 25 mg PO DAILY 03/25/19 03/25/19 [Hydrochlorothiazide] Albuterol 2.5 mg INH Q4H PRN #30 neb 04/14/19 Ipratropium/Albuterol [Duoneb] 3 ml INH Q6H PRN #1 b 04/14/19 predniSONE [Deltasone] 20 mg PO [id number] #21 tab 04/14/19 Guaifenesin/Pseudoephedrne HCl 1 each PO BID PRN #20 tab.er.12h 04/28/19 [Mucinex D ER 600-60 mg Tablet] Doxycycline Hyclate 100 mg PO BID #20 09/07/20 Polymyxin B/Trimeth Ophth Drop 1 drops LEFTEYE Q3H 7 Days #1 09/07/20 [Polytrim Ophth Drops] bottle - Allergies Allergies/Adverse Reactions: Allergies Allergy/AdvReac Type Severity Reaction Status Date / Time No Known Drug Allergies Allergy Verified 09/07/20 18:15 - Social History Does the pt smoke?: No Smoking Status: Never smoker Does the pt drink ETOH?: Yes Does the pt have substance abuse?: Yes - Immunizations Immunizations are current?: Yes - POLST Patient has POLST: No PD ED PE NORMAL - Vitals Vital signs reviewed: Yes - General General: Alert and oriented X 3, No acute distress - HEENT HEENT: PERRL, EOMI, Moist mucous membranes, Other (Left lower eyelid, there is swelling to the lateral aspect. No drainage. Mild erythema.) - Derm Derm: Warm and dry - Neuro Neuro: Alert and oriented X 3 Results - Vitals Vitals: Vital Signs - 24 hr 09/07/20 18:09 Temperature 36.7 C Heart Rate 89 Respiratory 18 Rate Blood Pressure 181/96 H O2 Saturation 97 Oxygen O2 Source Room air PD MEDICAL DECISION MAKING - ED course Complexity details: considered differential, d/w patient ED course: Patient with a small stye on the left lower eyelid. He has followed up with ophthalmology this week. There does appear to be cellulitis overlying the area, will trial on doxycycline. We will also change to Polytrim ophthalmic. Recommend warm compresses 4-5 times daily. Patient counseled regarding signs and symptoms for which I believe and urgent re-evaluation would be necessary. Patient with good understanding of and agreement to plan and is comfortable going home at this time This document was made in part using voice recognition software. While efforts are made to proofread this document, sound alike and grammatical errors may occur. No evidence of orbital cellulitis. no pain with EOM Departure - Departure Disposition: 01 Home, Self Care Clinical Impression: Hordeolum Qualifiers: Hordeolum type: unspecified type Laterality: left Eyelid: lower Qualified Code(s): H00.015 - Hordeolum externum left lower eyelid Cellulitis Qualifiers: Site of cellulitis: periorbital Laterality: left Qualified Code(s): L03.213 - Periorbital cellulitis Condition: Good Instructions: ED Cellulitis Facial Follow-Up: Nasim Parra MD [Primary Care Provider] - Prescriptions: Doxycycline Hyclate 100 mg PO BID #20 Polymyxin B/Trimeth Ophth Drop [Polytrim Ophth Drops] 1 drops LEFTEYE Q3H 7 Days #1 bottle Comments: Please follow-up with ophthalmology for further evaluation of the hordeolum. Take the antibiotics as prescribed. Return if you worsen. Discharge Date/Time: 09/07/20 19:49
== END 2020-09-07 19:49 | disposition home or self-care (01) ==
LOC: ED 18:05
DX: H00.015 Hordeolum externum left lower eyelid (principal); L03.213 Periorbital cellulitis; I10 Essential (primary) hypertension
CPT/HCPCS: 99282; 99283

== ENCOUNTER 2021-02-19 08:00 | Outpatient (CLI) | payer MEDICAID | END 2021-02-19 23:59 | disposition home or self-care (01) | LOC: LAB 08:00 | PROVIDERS: ATTEND Nurse Practitioner | DX: R05.3 Chronic cough (principal); Z20.822 Contact with and (suspected) exposure to COVID-19 ==

== ENCOUNTER 2021-04-09 08:00 | Outpatient (CLI) | payer MEDICAID | END 2021-04-09 23:59 | LOC: LAB.N 08:00 | PROVIDERS: ATTEND Physician Assistant | DX: R05.9 Cough, unspecified (principal); R51.9 Headache, unspecified; Z20.822 Contact with and (suspected) exposure to COVID-19 ==

== ENCOUNTER 2021-07-21 07:29 | Emergency (ER) | payer MEDICAID ==
[2021-07-21] MEDS ORDERED: IPRATROPIUM/ALBUTEROL 3 ML NEB INH STA (07:51)
[2021-07-21] MEDS ORDERED: predniSONE 20 MG TABLET PO STA (07:51)
--- NOTE | 2021-07-21 08:01 | ED Physician Documentation ---
History of Present Illness - Stated complaint Stated Complaint: ASTHMA ATTACK - Chief complaint Chief Complaint: Resp - History obtained from History obtained from: Patient - History of Present Illness Timing: How many days ago (2) Pain level max: 3 Pain level now: 2 - Additonal information Additional information: 36-year-old male states he has a longstanding history of asthma. He states that he was mowing the lawn a few days ago when he began to feel tightness in his chest and coughing. Improved with albuterol and Advair, he states that he is using his albuterol more frequently and is still feeling like he is wheezing. He states his daughter also recently had strep pharyngitis and he had a sore throat yesterday. No fevers. No COVID exposure. Worse with exertion, better with rest. Patient states that he recently stopped vaping, but does use marijuana. Review of Systems Constitutional: denies: Fever, Chills Nose: reports: Rhinorrhea / runny nose, Congestion Respiratory: reports: Dyspnea, Wheezing. denies: Cough GI: denies: Nausea, Vomiting, Diarrhea Skin: denies: Rash Musculoskeletal: denies: Neck pain, Back pain PD PAST MEDICAL HISTORY - Past Medical History Cardiovascular: Hypertension Respiratory: Asthma Neuro: None Endocrine/Autoimmune: None GI: None : None HEENT: None Psych: Anxiety Musculoskeletal: None Derm: None - Past Surgical History Past Surgical History: Yes Ortho: Other - Present Medications Home Medications: Ambulatory Orders Medication Instructions Recorded Confirmed Albuterol Sulfate [Proventil Hfa 1 - 2 puffs INH Q4H PRN #1 inhaler 12/07/15 07/21/21 Inhaler] Cetirizine [ZyrTEC] 1 tab PO DAILY 12/07/15 07/21/21 hydroCHLOROthiazide 25 mg PO DAILY 03/25/19 07/21/21 [Hydrochlorothiazide] Albuterol 2.5 mg INH Q4H PRN #30 neb 04/14/19 07/21/21 Ipratropium/Albuterol [Duoneb] 3 ml INH Q6H PRN #1 b 04/14/19 07/21/21 Albuterol Sulf [Ventolin Hfa 1 - 2 puffs INH Q4HR PRN #1 inhaler 07/21/21 Inhaler] predniSONE [Deltasone] 10 mg PO [id number] #42 tab 07/21/21 - Allergies Allergies/Adverse Reactions: Allergies Allergy/AdvReac Type Severity Reaction Status Date / Time oregano Allergy Rash Verified 07/21/21 08:18 - Social History Does the pt smoke?: No Smoking Status: Never smoker Does the pt drink ETOH?: Yes Does the pt have substance abuse?: Yes - Immunizations Immunizations are current?: Yes - POLST Patient has POLST: No PD ED PE NORMAL - Vitals Vital signs reviewed: Yes - General General: Alert and oriented X 3, No acute distress, Well developed/nourished - HEENT HEENT: PERRL, Moist mucous membranes, Pharynx benign - Neck Neck: Supple, no meningeal sign - Cardiac Cardiac: RRR - Respiratory Respiratory: Other (Diffuse wheezing bilaterally) - Abdomen Abdomen: Soft, Non tender, Non distended - Derm Derm: Warm and dry - Extremities Extremities: No edema - Neuro Neuro: Alert and oriented X 3 - Psych Psych: Normal mood, Normal affect Results - Vitals Vitals: Vital Signs - 24 hr 07/21/21 07/21/21 07/21/21 07:31 08:15 09:20 Temperature 37.6 C Heart Rate 91 98 104 H Respiratory 19 23 20 Rate Blood Pressure 169/103 H O2 Saturation 95 07/21/21 07/21/21 09:41 10:10 Temperature Heart Rate 87 99 Respiratory 25 H 25 H Rate Blood Pressure 159/93 H O2 Saturation 97 Oxygen O2 Source Room air - Labs Labs: Laboratory Tests 07/21/21 07:50 Group A Strep Rapid Negative PD MEDICAL DECISION MAKING - ED course Complexity details: considered differential, d/w patient ED course: 36-year-old male with what appears to be an asthma exacerbation. He was given DuoNeb treatment as well as steroids. We will have him follow-up with his doctor for further care. Patient is well-appearing, nontoxic. Afebrile. No hypoxia. No respiratory distress. Patient counseled regarding signs and symptoms for which I believe and urgent re-evaluation would be necessary. Patient with good understanding of and agreement to plan and is comfortable going home at this time This document was made in part using voice recognition software. While efforts are made to proofread this document, sound alike and grammatical errors may occur. Departure - Departure Disposition: 01 Home, Self Care Clinical Impression: Asthma exacerbation Qualifiers: Asthma severity: unspecified severity Asthma persistence: unspecified Qualified Code(s): J45.901 - Unspecified asthma with (acute) exacerbation Condition: Good Instructions: ED Reactive Airway Disease Follow-Up: Your,doctor in 1 week [Other] Prescriptions: Albuterol Sulf [Ventolin Hfa Inhaler] 1 - 2 puffs INH Q4HR PRN #1 inhaler PRN Reason: Shortness Of Air/Wheezing predniSONE [Deltasone] 10 mg PO [id number] #42 tab Comments: Please follow-up with your doctor for further care. Please return if you worsen. [facility] [place]. Your strep test is also negative today
[2021-07-21 08:10] LABS: RAPID STREP SCREEN Negative (Negative)
[2021-07-21] MEDS ORDERED: ALBUTEROL NEB 2.5 MG/3 ML INH STA ×2 (09:02→09:52)
[2021-07-21] MEDS ORDERED: ALBUTEROL NEB 2.5 MG/3 ML INH ONE (10:13)
[2021-07-21 11:06] VITALS: BP 140/92
== END 2021-07-21 11:06 | disposition home or self-care (01) ==
LOC: ED 07:29
DX: J45.901 Unspecified asthma with (acute) exacerbation (principal)
CPT/HCPCS: 87070; 87430; 94150; 94640; 99284; 99285; J7512

== ENCOUNTER 2021-07-21 17:28 | Observation (INO) | payer MEDICAID ==
[2021-07-21] MEDS ORDERED: methylPREDNISolone SUCCINATE 125 MG/2 ML VIAL IVP STA (17:50)
[2021-07-21] MEDS ORDERED: IPRATROPIUM/ALBUTEROL 3 ML NEB INH STA (17:50)
--- NOTE | 2021-07-21 18:02 | ED Physician Documentation ---
History of Present Illness - Stated complaint Stated Complaint: ASTHMA - Chief complaint Chief Complaint: Resp - History obtained from History obtained from: Patient - History of Present Illness Pain level max: 0 Pain level now: 0 - Additonal information Additional information: 36-year-old male with a history of asthma was seen here earlier this morning for same. He did improve on steroids and multiple nebulizer treatments. Unfortunately his symptoms recurred when he went home. States increased difficulty breathing, audible wheezing. No fevers. No chills. Review of Systems Constitutional: denies: Fever Ears: denies: Ear pain Nose: denies: Rhinorrhea / runny nose, Congestion Throat: denies: Sore throat Cardiac: denies: Chest pain / pressure Respiratory: reports: Dyspnea, Wheezing. denies: Cough GI: denies: Vomiting, Diarrhea Skin: denies: Rash Musculoskeletal: denies: Neck pain, Back pain Neurologic: denies: Headache PD PAST MEDICAL HISTORY - Past Medical History Cardiovascular: Hypertension Respiratory: Asthma Neuro: None Endocrine/Autoimmune: None GI: None : None HEENT: None Psych: Anxiety Musculoskeletal: None Derm: None - Past Surgical History Past Surgical History: Yes Ortho: Other - Present Medications Home Medications: Ambulatory Orders Medication Instructions Recorded Confirmed Cetirizine [ZyrTEC] 1 tab PO DAILY 12/07/15 07/21/21 hydroCHLOROthiazide 25 mg PO DAILY 03/25/19 07/21/21 [Hydrochlorothiazide] Albuterol Sulf [Ventolin Hfa 1 - 2 puffs INH Q4HR PRN #1 inhaler 07/21/21 07/21/21 Inhaler] Escitalopram [Lexapro] 10 mg PO DAILY 07/21/21 07/21/21 Fluticasone/Salmeterol [Advair 1 each INH DAILY 07/21/21 07/21/21 250-50 Diskus] predniSONE [Deltasone] 10 mg PO [id number] #42 tab 07/21/21 07/21/21 - Allergies Allergies/Adverse Reactions: Allergies Allergy/AdvReac Type Severity Reaction Status Date / Time oregano Allergy Rash Verified 07/21/21 17:40 - Social History Does the pt smoke?: No Smoking Status: Never smoker Does the pt drink ETOH?: Yes Does the pt have substance abuse?: Yes - Immunizations Immunizations are current?: Yes - POLST Patient has POLST: No PD ED PE NORMAL - Vitals Vital signs reviewed: Yes - General General: Alert and oriented X 3, No acute distress - HEENT HEENT: Moist mucous membranes - Neck Neck: Supple, no meningeal sign - Cardiac Cardiac: RRR, Strong equal pulses - Respiratory Respiratory: Other (Tachypnea, audible wheezing, mild respiratory distress) - Abdomen Abdomen: Soft, Non tender, Non distended - Derm Derm: Warm and dry, No rash - Extremities Extremities: No edema, No calf tenderness / cord - Neuro Neuro: Alert and oriented X 3 - Psych Psych: Normal mood, Normal affect Results - Vitals Vitals: Vital Signs - 24 hr 07/21/21 07/21/21 07/21/21 17:41 18:07 18:13 Temperature 37.0 C Heart Rate 107 H 109 H 111 H Respiratory 18 20 22 Rate Blood Pressure 174/96 H 176/97 H O2 Saturation 96 98 Oxygen O2 Source Room air - Labs Labs: Laboratory Tests 07/21/21 07/21/21 18:02 18:02 WBC 13.9 H RBC 4.55 L Hgb 13.4 L Hct 40.4 L MCV 88.8 MCH 29.5 MCHC 33.2 RDW 12.9 Plt Count 303 MPV 9.5 Neut # (Auto) 12.2 H Lymph # (Auto) 0.7 L [place] # (Auto) 0.9 Eos # (Auto) 0.0 Baso # (Auto) 0.0 Absolute Nucleated RBC 0.00 Nucleated RBC % 0.0 Sodium 137 Potassium 3.8 Chloride 102 Carbon Dioxide 24 Anion Gap 11.0 BUN 10 Creatinine 1.0 Estimated GFR (MDRD) 104 Glucose 178 H Calcium 9.3 - Rads (name of study) Chest x-ray Radiology: Final report received, EMP read contemporaneously, See rad report (No acute abnormality) PD MEDICAL DECISION MAKING - ED course Complexity details: reviewed old records, reviewed results, re-evaluated patient, considered differential, d/w patient, d/w enterprise resource planning consultant ED course: 36-year-old male presents to the emergency department with increasing weight and difficulty breathing. He has already had 60 mg of prednisone today as well as 4 breathing treatments earlier in the emergency department and 5 uses of his inhaler at home. He was given another DuoNeb treatment here. Still has significant tachypnea and wheezing. We will place in observation for continued steroids and continued breathing treatments. He was given a dose of Solu-Medrol in the emergency department currently. Discussed the case with Dr. Espana, hospitalist who accepts This document was made in part using voice recognition software. While efforts are made to proofread this document, sound alike and grammatical errors may occur. Departure - Departure Disposition: ED Place in Observation Clinical Impression: Asthma exacerbation Qualifiers: Asthma severity: severe Asthma persistence: persistent Qualified Code(s): J45.51 - Severe persistent asthma with (acute) exacerbation Condition: Stable
[2021-07-21 18:16] LABS: BASOPHILS % (AUTO) 0.2 %; EOSINOPHILS % (AUTO) 0.1 %; HCT - HEMATOCRIT 40.4 % (42.0-52.0); HGB - HEMOGLOBIN 13.4 g/dL (14.0-18.0); LYMPHOCYTES # (AUTO) 0.7 10^3/uL (1.5-3.5); LYMPHOCYTES % (AUTO) 4.8 %; MEAN CORPUSCULAR HEMOGLOBIN 29.5 pg (27.0-31.0); MEAN CORPUSCULAR HGB CONC 33.2 g/dL (32.0-36.0); MEAN CORPUSCULAR VOLUME 88.8 fL (80.0-94.0); MEAN PLATELET VOLUME 9.5 fL (7.4-11.4); MONOCYTES # (AUTO) 0.9 10^3/uL (0.0-1.0); MONOCYTES % (AUTO) 6.3 %; NEUTROPHILS # (AUTO) 12.2 10^3/uL (1.5-6.6); NEUTROPHILS % (AUTO) 88.2 %; PLT - PLATELET COUNT 303 10^3/uL (130-450); RED BLOOD COUNT 4.55 10^6/uL (4.70-6.10); RED CELL DISTRIBUTION WIDTH 12.9 % (12.0-15.0); WHITE BLOOD COUNT 13.9 x10^3/uL (4.8-10.8)
[2021-07-21] MEDS ORDERED: ACETAMINOPHEN 325 MG TABLET PO PRN (18:22)
[2021-07-21] MEDS ORDERED: ONDANSETRON 4 MG/2 ML VIAL IVP PRN (18:22)
[2021-07-21 18:23] LABS: CALCIUM 9.3 mg/dL (8.5-10.3); POTASSIUM 3.8 mmol/L (3.5-5.0)
[2021-07-21] MEDS ORDERED: IPRATROPIUM/ALBUTEROL 3 ML NEB INH PRN (18:25)
--- NOTE | 2021-07-21 18:31 | XRAY Report ---
PROCEDURE: Chest 2 View X-Ray INDICATIONS: wheezing TECHNIQUE: 2 view(s) of the chest. COMPARISON: None. FINDINGS: Surgical changes and devices: None. Lungs and pleura: No pleural effusions or pneumothorax. Lungs are clear. Mediastinum: Mediastinal contours are normal. Heart size is normal. Bones and chest wall: No suspicious bony abnormalities. Soft tissues appear unremarkable. IMPRESSION: Chest without acute cardiopulmonary process. No focal airspace disease. Reviewed by: Huseyin Nguyen MD on 07/21/2021 6:30 PM PDT Approved by: Huseyin Nguyen MD on 07/21/2021 6:30 PM PDT Station ID: [id number]
--- NOTE | 2021-07-21 19:07 | HISTORY & PHYSICAL EXAMINATION ---
Chief Complaint - Chief Complaint Chief Complaint: Shortness of breath History of Present Illness - Admitted From Admitted From:: Home - History Obtained From Records Reviewed: [facility] History obtained from: Patient, EMR - History of Present Illness HPI Comment/Other: This is a 36-year-old male with a past medical history significant for severe persistent asthma, hypertension, anxiety who presents today complaining of shortness of breath. He states he began to feel short of breath at about 2 AM this morning. He was seen in the emergency departments morning and was given prednisone along with a few nebulizer treatments. He had some improvement in his symptoms and so he was discharged home. He states he went home and took a short nap when he woke up he still felt quite short of breath and quite tight in his chest. He took 3 breathing treatments without any improvement in his symptoms. He continued to have wheezing and so he came back to the emergency department. He states he was feeling well up until last night when he had a severe sore throat but that resolved this morning. He has had some nasal congestion and discharge. He reports his daughter has had cold-like symptoms for the past 3 to 4 days. He did cut the grass a couple of days ago and that can trigger his asthma at times. He has had no fevers or chills but has had a productive cough. He states he was diagnosed with asthma at the age of 7 and he was hospitalized once at the age of 18. He reports he is normally compliant with his Advair and takes his ProAir every 4 hours on a daily basis. He reports taking Zyrtec for allergies but that has been a common trigger of his asthma. He smoked briefly for a few years about a pack a month but quit 3 to 4 years ago. He began to vape about 8 months ago but quit after 2 months. He does smoke marijuana about 2 times a week. He did receive a vaccine with 2 doses against COVID-19 but has not received a booster dose and his last dose was about 1 year ago. Given he was still dyspneic with audible wheezing in the emergency department despite steroids and nebulizer treatments, medicine was consulted for admission. History - Past Medical History Cardiovascular: reports: Hypertension Respiratory: reports: Asthma Neuro: reports: None Endocrine/Autoimmune: reports: None GI: reports: None : reports: None HEENT: reports: None Psych: reports: Anxiety Musculoskeletal: reports: None Derm: reports: None MRSA Hx?: No - Family & Social History Family History Comment/Other: He reports his mother had a leg amputation due to an arterial occlusion. His father has diabetes. His sister also has asthma. Living arrangement: At home Living Situation: With family Social History Notes: He lives at home with his and daughter. He smoked about a pack a month for 4 years but quit over 4 years ago. He did vape for about 2 months but quit 6 months ago. He smokes marijuana twice a week. He rarely drinks alcohol. - POLST Patient has POLST: No Meds/Allgy - Home Medications Home Medications: Ambulatory Orders Medication Instructions Recorded Confirmed Cetirizine [ZyrTEC] 1 tab PO DAILY 12/07/15 07/21/21 Albuterol Sulf [Ventolin Hfa 1 - 2 puffs INH Q4HR PRN #1 inhaler 07/21/21 07/21/21 Inhaler] Chlorthalidone 25 mg PO DAILY 07/21/21 07/21/21 Escitalopram [Lexapro] 10 mg PO DAILY 07/21/21 07/21/21 Fluticasone/Salmeterol [Advair 1 each INH DAILY 07/21/21 07/21/21 250-50 Diskus] predniSONE [Deltasone] 10 mg PO [id number] #42 tab 07/21/21 07/21/21 - Allergies Allergies/Adverse Reactions: Allergies Allergy/AdvReac Type Severity Reaction Status Date / Time oregano Allergy Rash Verified 07/21/21 17:40 Review of Systems - Constitutional Constitutional: reports: Chills. denies: Fever - Ears, Nose & Throat Ears, Nose & Throat: reports: Nasal discharge, Nasal congestion, Sore throat - Cardiovascular Cariovascular: reports: Exertional dyspnea, Decr. exercise tolerance. denies: Chest pain, Edema - Respiratory Respiratory: reports: Cough, Sputum production, Wheezing, SOB at rest, SOB with exertion - Gastrointestinal Gastrointestinal: denies: Abdominal pain, Nausea, Vomiting - Genitourinary Genitourinary: denies: Dysuria, Frequency, Hematuria - Musculoskeletal Musculoskeletal: denies: Limited range of motion - Integumentary Integumentary: denies: Rash - Neurological Neurological: denies: General weakness, Focal weakness - Hematologic/Lymphatic Hematologic/Lymphatic: denies: Blood clots, Bleeding tendencies - All Other Systems All Other Systems: reports: Reviewed and negative Prior Level of Functionality: He is independent with his ADL's. Exam - Vital Signs Reviewed Vital Signs: Yes Vital Signs: Vital Signs x48h Temp Pulse Resp BP Pulse Ox 07/21/21 18:13 111 H 22 176/97 H 98 07/21/21 18:07 109 H 20 07/21/21 17:41 37.0 C 107 H 18 174/96 H 96 - Physical Exam General Appearance: positive: No acute distress, Alert Eyes Bilateral: positive: Normal inspection, Conjunctivae nml ENT: positive: ENT inspection nml Neck: positive: Nml inspection Respiratory: positive: No respiratory distress, Wheezes (Expiratory). negative: Rales, Rhonchi Cardiovascular: positive: Regular rate & rhythm, Tachycardia. negative: Irregularly irregular, Systolic murmur Abdomen: positive: Non-tender, No distention. negative: Tenderness Skin: positive: Warm, Dry Extremities: positive: No pedal edema Neurologic/Psychiatric: positive: Motor nml. negative: Disoriented to person, Disoriented to place, Disoriented to time Conclusion/Plan - Problem List (1) Asthma exacerbation Conclusion/Plan: It appears based off of history that he has severe persistent asthma. He now has an asthma exacerbation which is likely secondary to the rhinovirus infection. His chest x-ray appears normal. Given he failed outpatient treat ment, we will place him in observation. We will start him on Solu-Medrol 40 mg IV 3 times daily. Duo nebs every 4 hours albuterol every 4 hours as needed. We will start him on Singulair. We discussed that it sounds like his asthma is not very well controlled at baseline given his frequent use of ProAir on a daily basis. We discussed that we may need to add a long-acting muscarinic antagonist and that he may benefit from referral to mental health advanced practice nurse/video production intern for further management. Qualifiers: Asthma severity: severe Asthma persistence: persistent Qualified Code(s): J45.51 - Severe persistent asthma with (acute) exacerbation (2) Rhinovirus infection Conclusion/Plan: He is positive for rhinovirus which likely triggered the asthma exacerbation. Continue contact precautions. Management as mentioned above. (3) Hypertension Conclusion/Plan: His blood pressure is currently well controlled. We will continue chlorthalidone. (4) Anxiety Conclusion/Plan: Stable. Continue Lexapro. - Lab Results Lab results reviewed: Yes Fish Bones: 07/21/21 18:02 07/21/21 18:02 - Diagnostic Imaging Results Diagnostic Imaging Results: positive: Final report reviewed Core Measures - Anticipated LOS I expect patient to be DC'd or transferred within 96 hours.: Yes - Issues Hospital Issues and Management Plan: 36 year old male will be placed in observation for an asthma exacerbation. - DVT/VTE - Prophylaxis VTE/DVT Device ordered at admit?: Yes VTE/DVT Prophylaxis med ordered at admit?: No
[2021-07-21 19:13] LABS: B. PARAPERTUSSIS- RESP PCR PAN NOT DETECTED; B. PERTUSSIS- RESP PCR PANEL NOT DETECTED; C. PNEUMONIAE- RESP PCR PANEL NOT DETECTED; CORONAVIRUS 229E-RESP PCR NOT DETECTED; CORONAVIRUS HKU1-RESP PCR NOT DETECTED; CORONAVIRUS NL63-RESP PCR NOT DETECTED; CORONAVIRUS OC43-RESP PCR NOT DETECTED; HUMAN METAPNEUMOVIRUS NOT DETECTED; INFLUENZA A- RESP PCR PANEL NOT DETECTED; INFLUENZA B - RESP PCR PANEL NOT DETECTED; M. PNEUMONIAE- RESP PCR PANEL NOT DETECTED; PARAINFLUENZA VIRUS 1 NOT DETECTED; PARAINFLUENZA VIRUS 2 NOT DETECTED; PARAINFLUENZA VIRUS 3 NOT DETECTED; PARAINFLUENZA VIRUS 4 NOT DETECTED; RHINOVIRUS/ENTEROVIRUS DETECTED; RSV- RESP PCR PANEL NOT DETECTED; SARS-CoV-2 -RESP PCR PANEL NOT DETECTED
[2021-07-21] MEDS ORDERED: BENZONATATE 100 MG CAPSULE PO PRN (19:45)
[2021-07-21] MEDS: IPRATROPIUM/ALBUTEROL 3 ML NEB INH SCH ×2 (20:18→23:55)
[2021-07-21] MEDS: methylPREDNISolone SUCCINATE 40 MG/ML VIAL IVP SCH (21:40)
[2021-07-21] MEDS: MONTELUKAST 10 MG TABLET PO SCH (21:40)
[2021-07-21] MEDS: SODIUM CHLORIDE FLUSH 0.9% 10 ML SYRINGE IVP PRN (21:42)
[2021-07-21] MEDS ORDERED: methylPREDNISolone SUCCINATE 40 MG/ML VIAL IVP SCH (22:00)
[2021-07-22] MEDS: SODIUM CHLORIDE FLUSH 0.9% 10 ML SYRINGE IVP SCH ×4 (01:49→23:40)
[2021-07-22] MEDS: methylPREDNISolone SUCCINATE 40 MG/ML VIAL IVP SCH ×3 (05:18→21:14)
[2021-07-22] MEDS: IPRATROPIUM/ALBUTEROL 3 ML NEB INH SCH ×5 (05:30→20:55)
[2021-07-22] MEDS: hydroCHLOROthiazide 12.5 MG CAPSULE PO SCH (08:10)
[2021-07-22] MEDS: ESCITALOPRAM 10 MG TABLET PO SCH (08:11)
[2021-07-22 08:20] LABS: BASOPHILS % (AUTO) 0.1 %; HCT - HEMATOCRIT 40.1 % (42.0-52.0); HGB - HEMOGLOBIN 13.5 g/dL (14.0-18.0); LYMPHOCYTES # (AUTO) 0.8 10^3/uL (1.5-3.5); LYMPHOCYTES % (AUTO) 4.4 %; MEAN CORPUSCULAR HEMOGLOBIN 29.7 pg (27.0-31.0); MEAN CORPUSCULAR HGB CONC 33.7 g/dL (32.0-36.0); MEAN CORPUSCULAR VOLUME 88.3 fL (80.0-94.0); MEAN PLATELET VOLUME 9.7 fL (7.4-11.4); MONOCYTES # (AUTO) 0.6 10^3/uL (0.0-1.0); NEUTROPHILS # (AUTO) 17.6 10^3/uL (1.5-6.6); PLT - PLATELET COUNT 293 10^3/uL (130-450); RED BLOOD COUNT 4.54 10^6/uL (4.70-6.10); RED CELL DISTRIBUTION WIDTH 12.9 % (12.0-15.0); WHITE BLOOD COUNT 19.1 x10^3/uL (4.8-10.8)
--- NOTE | 2021-07-22 08:22 | PROVIDER PROGRESS NOTE ---
Assessment/Plan - Problem List (1) Asthma exacerbation Qualifiers: Asthma severity: severe Asthma persistence: persistent Qualified Code(s): J45.51 - Severe persistent asthma with (acute) exacerbation Assessment/Plan: Improving. Patient's still has some wheezing and slight difficulty taking in breaths. On Solu-Medrol 40 mg IV 3 times daily. Singulair 10 mg p.o. every afternoon DuoNeb every 4 hours as needed. Albuterol every 4 hours as needed. Anticipate discharge on 07/23/2021 (2) Rhinovirus infection Assessment/Plan: Symptomatic management. (3) Anxiety Assessment/Plan: On Lexapro (4) Hypertension Assessment/Plan: On Hydrochlorthiazide 37.5mg po daily - Current Meds Current Meds: Current Medications Generic Name Dose Route Start Last Admin Trade Name Freq PRN Reason Stop Dose Admin Albuterol/Ipratropium 3 ml 07/21/21 21:00 07/22/21 05:30 Ipratropium/Albuterol 3 Ml Neb INH 3 ml Q4HR TIFFANIE Administration Escitalopram Oxalate 10 mg 07/22/21 09:00 07/22/21 08:11 Escitalopram 10 Mg Tablet PO 10 mg DAILY TIFFANIE Administration Hydrochlorothiazide 37.5 mg 07/22/21 09:00 07/22/21 08:10 Hydrochlorothiazide 12.5 Mg Capsule PO 37.5 mg DAILY TIFFANIE Administration Methylprednisolone 40 mg 07/21/21 22:00 07/22/21 05:18 Methylprednisolone Succinate 40 Mg/Ml Vial IVP 40 mg TID TIFFANIE Administration Montelukast Sodium 10 mg 07/21/21 21:00 07/21/21 21:40 Montelukast 10 Mg Tablet PO 10 mg QPM TIFFANIE Administration Sodium Chloride 10 ml 07/21/21 18:22 07/21/21 21:42 Sodium Chloride Flush 0.9% 10 Ml Syringe IVP 10 ml PRN PRN Administration NEEDED PER PROVIDER ORDERS Sodium Chloride 10 ml 07/22/21 01:00 07/22/21 08:11 Sodium Chloride Flush 0.9% 10 Ml Syringe IVP 10 ml 0100,0900,1700 TIFFANIE Administration - Lab Result Fish Bone Diagrams: 07/22/21 08:15 07/22/21 08:15 - Additional Planning My Orders: My Active Orders 07/21/21 18:22 Activity Orders [RC] Q2HR IO [RC] IOSHIFT Incentive Spirometry - RT [RC] TID Initiate Bowel Care Protocol [RC] .protocol Initiate Line Care Protocol [RC] QSHIFT Initiate Personal Care Protoco [RC] .protocol Oxygen Therapy [RC] .PRN Telemetry- [RC] Q4HR Vital Signs [RC] Q4HR Acetaminophen [Tylenol] 650 mg PO Q4HR PRN Ondansetron Inj [Zofran Inj] 4 mg IVP Q6HR PRN Sodium Chloride Flush 0.9% [Normal Saline Flush 0.9%] 10 ml IVP PRN PRN Code Status [OTHERS] Routine Condition of Patient [OTHERS] Routine DVT Prophylaxis [OTHERS] Routine 07/22/21 01:00 Sodium Chloride Flush 0.9% [Normal Saline Flush 0.9%] 10 ml IVP 0100,0900,1700 07/22/21 08:15 BMP - BASIC METABOLIC PANEL [CHEM] DAILYLAB 07/23/21 05:00 BMP - BASIC METABOLIC PANEL [CHEM] DAILYLAB CBC - COMP BLD CT W/AUTO DIFF [HEME] DAILYLAB 07/24/21 05:00 BMP - BASIC METABOLIC PANEL [CHEM] DAILYLAB CBC - COMP BLD CT W/AUTO DIFF [HEME] DAILYLAB Subjective - Subjective Patient Reports: Other (He was resting comfortably in bed eating breakfast at the time of exam. He reports still having some difficulty taking in breaths and also reported a mild wheeze. Overall he feels better today compared to yesterday. He denies any other complaints.) Objective Vital Signs: Vital Signs - 24 hr 07/21/21 07/21/21 07/21/21 17:41 18:07 18:13 Temperature 37.0 C Heart Rate 107 H 109 H 111 H Heart Rate [ Brachial] Respiratory 18 20 22 Rate Blood Pressure 174/96 H 176/97 H Blood Pressure [Left Brachial artery] Blood Pressure [Right Brachial artery] O2 Saturation 96 98 07/21/21 07/21/21 07/21/21 19:06 20:20 23:35 Temperature 37.0 C 37 C Heart Rate 100 Heart Rate [ 98 88 Brachial] Respiratory 22 20 20 Rate Blood Pressure Blood Pressure 125/88 H [Left Brachial artery] Blood Pressure 156/82 H [Right Brachial artery] O2 Saturation 95 94 07/21/21 07/22/2122 23:55 05:19 05:30 Temperature 37 C Heart Rate 76 92 Heart Rate [ 88 Brachial] Respiratory 16 20 18 Rate Blood Pressure Blood Pressure [Left Brachial artery] Blood Pressure 113/99 H [Right Brachial artery] O2 Saturation 94 07/22/21 07:30 Temperature 36.6 C Heart Rate Heart Rate [ 78 Brachial] Respiratory 18 Rate Blood Pressure Blood Pressure [Left Brachial artery] Blood Pressure 142/81 H [Right Brachial artery] O2 Saturation 94 Oxygen O2 Source Room air I&O (Last 24 Hrs): Intake and Output Totals x24h 07/20/21 07/21/21 07/22/21 23:59 23:59 23:59 Intake Total 450 500 Balance 450 500 General: Alert, Oriented x3, Mild distress (respiratory) HEENT: PERRLA, EOMI Neck: Supple, No JVD Neuro: Alert, Non Focal, Oriented Times 3 Cardiovascular: Regular rate Respiratory: Chest non-tender, Wheezes, Other (mild respiratory distress) Abdomen: Normal bowel sounds, Soft, No tenderness, No masses Extremities: No clubbing, No cyanosis, No edema, No tenderness/swelling Skin: No rashes, No breakdown, No significant lesion - Results Results: Laboratory Results WBC 19.1 x10^3/uL (4.8-10.8) H 07/22/21 08:15 RBC 4.54 10^6/uL (4.70-6.10) L 07/22/21 08:15 Hgb 13.5 g/dL (14.0-18.0) L 07/22/21 08:15 Hct 40.1 % (42.0-52.0) L 07/22/21 08:15 MCV 88.3 fL (80.0-94.0) 07/22/21 08:15 MCH 29.7 pg (27.0-31.0) 07/22/21 08:15 MCHC 33.7 g/dL (32.0-36.0) 07/22/21 08:15 RDW 12.9 % (12.0-15.0) 07/22/21 08:15 Plt Count 293 10^3/uL (130-450) 07/22/21 08:15 MPV 9.7 fL (7.4-11.4) 07/22/21 08:15 Neut # (Auto) 17.6 10^3/uL (1.5-6.6) H 07/22/21 08:15 Lymph # (Auto) 0.8 10^3/uL (1.5-3.5) L 07/22/21 08:15 [place] # (Auto) 0.6 10^3/uL (0.0-1.0) 07/22/21 08:15 Eos # (Auto) 0.0 10^3/uL (0.0-0.7) 07/22/21 08:15 Baso # (Auto) 0.0 10^3/uL (0.0-0.1) 07/22/21 08:15 Absolute Nucleated RBC 0.00 x10^3/uL 07/22/21 08:15 Nucleated RBC % 0.0 /100WBC 07/22/21 08:15 Sodium 137 mmol/L (135-145) 07/21/21 18:02 Potassium 3.8 mmol/L (3.5-5.0) 07/21/21 18:02 Chloride 102 mmol/L (101-111) 07/21/21 18:02 Carbon Dioxide 24 mmol/L (21-32) 07/21/21 18:02 Anion Gap 11.0 (6-13) 07/21/21 18:02 BUN 10 mg/dL (6-20) 07/21/21 18:02 Creatinine 1.0 mg/dL (0.6-1.2) 07/21/21 18:02 Estimated GFR (MDRD) 104 (>89) 07/21/21 18:02 Glucose 178 mg/dL (70-100) H 07/21/21 18:02 Calcium 9.3 mg/dL (8.5-10.3) 07/21/21 18:02 Nasal Adenovirus (PCR) NOT DETECTED 07/21/21 17:56 Nasal B. parapertussis DNA (PCR) NOT DETECTED 07/21/21 17:56 Nasal Coronavir 229E PCR NOT DETECTED 07/21/21 17:56 Nasal Coronavir HKU1 PCR NOT DETECTED 07/21/21 17:56 Nasal Coronavir NL63 PCR NOT DETECTED 07/21/21 17:56 Nasal Coronavir OC43 PCR NOT DETECTED 07/21/21 17:56 Nasal Enterovir/Rhinovir PCR DETECTED A 07/21/21 17:56 Nasal Influenza B PCR NOT DETECTED 07/21/21 17:56 Nasal Influenza A PCR NOT DETECTED 07/21/21 17:56 Nasal Parainfluen 1 PCR NOT DETECTED 07/21/21 17:56 Nasal Parainfluen 2 PCR NOT DETECTED 07/21/21 17:56 Nasal Parainfluen 3 PCR NOT DETECTED 07/21/21 17:56 Nasal Parainfluen 4 PCR NOT DETECTED 07/21/21 17:56 Nasal RSV (PCR) NOT DETECTED 07/21/21 17:56 Nasal B.pertussis DNA PCR NOT DETECTED 07/21/21 17:56 Nasal C.pneumoniae (PCR) NOT DETECTED 07/21/21 17:56 Prashanth Human Metapneumo PCR NOT DETECTED 07/21/21 17:56 Nasal M.pneumoniae (PCR) NOT DETECTED 07/21/21 17:56 Nasal SARS-CoV-2 (PCR) NOT DETECTED 07/21/21 17:56 ABX Reporting Has patient been on IV antibiotics over the past 48 hours?: No
[2021-07-22 08:28] LABS: CALCIUM 9.9 mg/dL (8.5-10.3); CREATININE 0.9 mg/dL (0.6-1.2); POTASSIUM 4.4 mmol/L (3.5-5.0)
[2021-07-22] MEDS: SODIUM CHLORIDE FLUSH 0.9% 10 ML SYRINGE IVP PRN (13:28)
[2021-07-22] MEDS: MONTELUKAST 10 MG TABLET PO SCH (21:14)
[2021-07-23] MEDS: IPRATROPIUM/ALBUTEROL 3 ML NEB INH SCH ×6 (01:03→20:52)
[2021-07-23] MEDS: methylPREDNISolone SUCCINATE 40 MG/ML VIAL IVP SCH ×3 (05:38→21:34)
[2021-07-23] MEDS: SODIUM CHLORIDE FLUSH 0.9% 10 ML SYRINGE IVP PRN (05:39)
[2021-07-23 06:04] LABS: BASOPHILS % (AUTO) 0.1 %; HCT - HEMATOCRIT 40.8 % (42.0-52.0); HGB - HEMOGLOBIN 13.5 g/dL (14.0-18.0); LYMPHOCYTES # (AUTO) 1.4 10^3/uL (1.5-3.5); LYMPHOCYTES % (AUTO) 7.5 %; MEAN CORPUSCULAR HEMOGLOBIN 28.8 pg (27.0-31.0); MEAN CORPUSCULAR HGB CONC 33.1 g/dL (32.0-36.0); MEAN PLATELET VOLUME 9.7 fL (7.4-11.4); MONOCYTES # (AUTO) 1.3 10^3/uL (0.0-1.0); MONOCYTES % (AUTO) 7.1 %; NEUTROPHILS # (AUTO) 15.8 10^3/uL (1.5-6.6); NEUTROPHILS % (AUTO) 84.7 %; PLT - PLATELET COUNT 329 10^3/uL (130-450); RED BLOOD COUNT 4.69 10^6/uL (4.70-6.10); RED CELL DISTRIBUTION WIDTH 12.9 % (12.0-15.0); WHITE BLOOD COUNT 18.7 x10^3/uL (4.8-10.8)
[2021-07-23 06:15] LABS: CALCIUM 9.7 mg/dL (8.5-10.3); CREATININE 0.8 mg/dL (0.6-1.2)
[2021-07-23] MEDS: hydroCHLOROthiazide 12.5 MG CAPSULE PO SCH (08:19)
[2021-07-23] MEDS: ESCITALOPRAM 10 MG TABLET PO SCH (08:19)
[2021-07-23] MEDS: SODIUM CHLORIDE FLUSH 0.9% 10 ML SYRINGE IVP SCH ×2 (08:20→16:14)
--- NOTE | 2021-07-23 11:40 | PROVIDER PROGRESS NOTE ---
Assessment/Plan - Problem List (1) Asthma exacerbation Qualifiers: Asthma severity: severe Asthma persistence: persistent Qualified Code(s): J45.51 - Severe persistent asthma with (acute) exacerbation Assessment/Plan: Improving. Patient's still has some wheezing and slight difficulty taking in breaths. On Solu-Medrol 40 mg IV 3 times daily. Singulair 10 mg p.o. every afternoon DuoNeb every 4 hours as needed. Albuterol every 4 hours as needed. A desaturation study was ordered today. With ambulation patient's oxygen saturation drops to 88 on room air. With rest his oxygenation improves back into the 90s. Due to the significance of his oxygen desaturation study and his report of still feeling tight/constricted when he breathes, Plan to continue treating him with IV steroids and breathing treatments. Anticipate discharge on 07/24/2021 (2) Rhinovirus infection Assessment/Plan: Symptomatic management. (3) Anxiety Assessment/Plan: On Lexapro (4) Hypertension Assessment/Plan: On Hydrochlorthiazide 37.5mg po daily - Current Meds Current Meds: Current Medications Generic Name Dose Route Start Last Admin Trade Name Freq PRN Reason Stop Dose Admin Albuterol/Ipratropium 3 ml 07/21/21 21:00 07/23/21 09:03 Ipratropium/Albuterol 3 Ml Neb INH 3 ml Q4HR TIFFANIE Administration Escitalopram Oxalate 10 mg 07/22/21 09:00 07/23/21 08:19 Escitalopram 10 Mg Tablet PO 10 mg DAILY TIFFANIE Administration Hydrochlorothiazide 37.5 mg 07/22/21 09:00 07/23/21 08:19 Hydrochlorothiazide 12.5 Mg Capsule PO 37.5 mg DAILY TIFFANIE Administration Methylprednisolone 40 mg 07/21/21 22:00 07/23/21 05:38 Methylprednisolone Succinate 40 Mg/Ml Vial IVP 40 mg TID TIFFANIE Administration Montelukast Sodium 10 mg 07/21/21 21:00 07/22/21 21:14 Montelukast 10 Mg Tablet PO 10 mg QPM TIFFANIE Administration Sodium Chloride 10 ml 07/21/21 18:22 07/23/21 05:39 Sodium Chloride Flush 0.9% 10 Ml Syringe IVP 10 ml PRN PRN Administration NEEDED PER PROVIDER ORDERS Sodium Chloride 10 ml 07/22/21 01:00 07/23/21 08:20 Sodium Chloride Flush 0.9% 10 Ml Syringe IVP 10 ml 0100,0900,1700 [facility] Administration - Lab Result Fish Bone Diagrams: 07/23/21 05:49 07/23/21 05:49 - Additional Planning My Orders: My Active Orders 07/23/21 08:20 Oxygen Desat. Study w/Exercise [RC] .ONCE 07/24/21 05:00 BMP - BASIC METABOLIC PANEL [CHEM] DAILYLAB CBC - COMP BLD CT W/AUTO DIFF [HEME] DAILYLAB Subjective - Subjective Patient Reports: Other (Comfortably in bed. Reports improvement in his breathing however still feels slightly constricted. Very mild wheezing.) Objective Vital Signs: Vital Signs - 24 hr 07/22/21 07/22/21 07/22/21 11:53 12:50 15:19 Temperature 36.9 C 36.9 C Heart Rate 88 Heart Rate [ 100 73 Brachial] Respiratory 20 19 19 Rate Blood Pressure 143/69 H 145/79 H [Right Brachial artery] O2 Saturation 94 96 07/22/21 07/22/21 07/22/21 16:02 20:26 21:12 Temperature 36.9 C Heart Rate 89 91 Heart Rate [ 91 Brachial] Respiratory 21 21 18 Rate Blood Pressure 149/88 H [Right Brachial artery] O2 Saturation 95 07/22/21 07/23/21 07/23/21 23:36 01:04 05:16 Temperature 36.8 C Heart Rate 86 84 Heart Rate [ 85 Brachial] Respiratory 18 18 20 Rate Blood Pressure 158/90 H [Right Brachial artery] O2 Saturation 92 07/23/21 07/23/21 07/23/21 05:41 08:20 08:37 Temperature 36.5 C 36.5 C Heart Rate 120 H Heart Rate [ 90 85 Brachial] Respiratory 18 20 Rate Blood Pressure 147/88 H 150/84 H [Right Brachial artery] O2 Saturation 92 93 07/23/21 09:10 Temperature Heart Rate 100 Heart Rate [ Brachial] Respiratory 18 Rate Blood Pressure [Right Brachial artery] O2 Saturation Oxygen O2 Source Room air I&O (Last 24 Hrs): Intake and Output Totals x24h 07/21/21 07/22/21 07/23/21 23:59 23:59 23:59 Intake Total 450 3100 1300 Balance 450 3100 1300 Comments/Notes: General: Alert, Oriented x3, Mild distress (respiratory) HEENT: PERRLA, EOMI Neck: Supple, No JVD Neuro: Alert, Non Focal, Oriented Times 3 Cardiovascular: Regular rate Respiratory: Chest non-tender, Wheezes, Other (mild respiratory distress) Abdomen: Normal bowel sounds, Soft, No tenderness, No masses Extremities: No clubbing, No cyanosis, No edema, No tenderness/swelling Skin: No rashes, No breakdown, No significant lesion - Results Results: Laboratory Results WBC 18.7 x10^3/uL (4.8-10.8) H 07/23/21 05:49 RBC 4.69 10^6/uL (4.70-6.10) L 07/23/21 05:49 Hgb 13.5 g/dL (14.0-18.0) L 07/23/21 05:49 Hct 40.8 % (42.0-52.0) L 07/23/21 05:49 MCV 87.0 fL (80.0-94.0) 07/23/21 05:49 MCH 28.8 pg (27.0-31.0) 07/23/21 05:49 MCHC 33.1 g/dL (32.0-36.0) 07/23/21 05:49 RDW 12.9 % (12.0-15.0) 07/23/21 05:49 Plt Count 329 10^3/uL (130-450) 07/23/21 05:49 MPV 9.7 fL (7.4-11.4) 07/23/21 05:49 Neut # (Auto) 15.8 10^3/uL (1.5-6.6) H 07/23/21 05:49 Lymph # (Auto) 1.4 10^3/uL (1.5-3.5) L 07/23/21 05:49 Armstrong # (Auto) 1.3 10^3/uL (0.0-1.0) H 07/23/21 05:49 Eos # (Auto) 0.0 10^3/uL (0.0-0.7) 07/23/21 05:49 Baso # (Auto) 0.0 10^3/uL (0.0-0.1) 07/23/21 05:49 Absolute Nucleated RBC 0.00 x10^3/uL 07/23/21 05:49 Nucleated RBC % 0.0 /100WBC 07/23/21 05:49 Sodium 137 mmol/L (135-145) 07/23/21 05:49 Potassium 4.0 mmol/L (3.5-5.0) 07/23/21 05:49 Chloride 100 mmol/L (101-111) L 07/23/21 05:49 Carbon Dioxide 27 mmol/L (21-32) 07/23/21 05:49 Anion Gap 10.0 (6-13) 07/23/21 05:49 BUN 17 mg/dL (6-20) 07/23/21 05:49 Creatinine 0.8 mg/dL (0.6-1.2) 07/23/21 05:49 Estimated GFR (MDRD) 134 (>89) 07/23/21 05:49 Glucose 129 mg/dL (70-100) H 07/23/21 05:49 Calcium 9.7 mg/dL (8.5-10.3) 07/23/21 05:49 Nasal Adenovirus (PCR) NOT DETECTED 07/21/21 17:56 Nasal B. parapertussis DNA (PCR) NOT DETECTED 07/21/21 17:56 Nasal Coronavir 229E PCR NOT DETECTED 07/21/21 17:56 Nasal Coronavir HKU1 PCR NOT DETECTED 07/21/21 17:56 Nasal Coronavir NL63 PCR NOT DETECTED 07/21/21 17:56 Nasal Coronavir OC43 PCR NOT DETECTED 07/21/21 17:56 Nasal Enterovir/Rhinovir PCR DETECTED A 07/21/21 17:56 Nasal Influenza B PCR NOT DETECTED 07/21/21 17:56 Nasal Influenza A PCR NOT DETECTED 07/21/21 17:56 Nasal Parainfluen 1 PCR NOT DETECTED 07/21/21 17:56 Nasal Parainfluen 2 PCR NOT DETECTED 07/21/21 17:56 Nasal Parainfluen 3 PCR NOT DETECTED 07/21/21 17:56 Nasal Parainfluen 4 PCR NOT DETECTED 07/21/21 17:56 Nasal RSV (PCR) NOT DETECTED 07/21/21 17:56 Nasal B.pertussis DNA PCR NOT DETECTED 07/21/21 17:56 Nasal C.pneumoniae (PCR) NOT DETECTED 07/21/21 17:56 Prashanth Human Metapneumo PCR NOT DETECTED 07/21/21 17:56 Nasal M.pneumoniae (PCR) NOT DETECTED 07/21/21 17:56 Nasal SARS-CoV-2 (PCR) NOT DETECTED 07/21/21 17:56 ABX Reporting Has patient been on IV antibiotics over the past 48 hours?: No
[2021-07-23] MEDS: ALBUTEROL NEB 2.5 MG/3 ML INH PRN (19:07)
[2021-07-23] MEDS: MONTELUKAST 10 MG TABLET PO SCH (21:34)
[2021-07-24] MEDS: IPRATROPIUM/ALBUTEROL 3 ML NEB INH SCH ×2 (01:06→05:14)
[2021-07-24] MEDS: ALBUTEROL NEB 2.5 MG/3 ML INH PRN ×2 (03:00→07:43)
[2021-07-24] MEDS: SODIUM CHLORIDE FLUSH 0.9% 10 ML SYRINGE IVP SCH ×2 (05:18)
[2021-07-24] MEDS: methylPREDNISolone SUCCINATE 40 MG/ML VIAL IVP SCH (05:18)
[2021-07-24 05:54] LABS: CALCIUM 9.4 mg/dL (8.5-10.3); CREATININE 0.8 mg/dL (0.6-1.2); POTASSIUM 3.9 mmol/L (3.5-5.0)
[2021-07-24 05:56] LABS: BASOPHILS % (AUTO) 0.1 %; HCT - HEMATOCRIT 41.9 % (42.0-52.0); LYMPHOCYTES % (AUTO) 7.1 %; MEAN CORPUSCULAR HEMOGLOBIN 29.5 pg (27.0-31.0); MEAN CORPUSCULAR HGB CONC 33.4 g/dL (32.0-36.0); MEAN CORPUSCULAR VOLUME 88.4 fL (80.0-94.0); MEAN PLATELET VOLUME 10.2 fL (7.4-11.4); MONOCYTES % (AUTO) 7.3 %; NEUTROPHILS # (AUTO) 11.9 10^3/uL (1.5-6.6); NEUTROPHILS % (AUTO) 84.6 %; PLT - PLATELET COUNT 365 10^3/uL (130-450); RED BLOOD COUNT 4.74 10^6/uL (4.70-6.10); RED CELL DISTRIBUTION WIDTH 12.6 % (12.0-15.0)
--- NOTE | 2021-07-24 07:23 | DISCHARGE SUMMARY ---
Discharge Summary Admit Date: 07/21/21 Discharge Date: 07/24/21 Discharging Provider: Chelsi Espana Primary Care Provider: Nasim Parra Condition at Discharge: Stable Discharge Disposition: 01 Home, Self Care - DIAGNOSES Admission Diagnoses: Asthma exacerbation Rhinovirus infection Hypertension Anxiety Discharge Diagnoses with Status of Each Condition: Asthma exacerbation Rhinovirus infection Hypertension Anxiety - HPI History of Present Illness: This is a 36-year-old male with a past medical history significant for severe persistent asthma, hypertension, anxiety who presents today complaining of short ness of breath. He states he began to feel short of breath at about 2 AM this morning. He was seen in the emergency departments morning and was given prednisone along with a few nebulizer treatments. He had some improvement in his symptoms and so he was discharged home. He states he went home and took a short nap when he woke up he still felt quite short of breath and quite tight in his chest. He took 3 breathing treatments without any improvement in his symptoms. He continued to have wheezing and so he came back to the emergency department. He states he was feeling well up until last night when he had a severe sore throat but that resolved this morning. He has had some nasal congestion and discharge. He reports his daughter has had cold-like symptoms for the past 3 to 4 days. He did cut the grass a couple of days ago and that can trigger his asthma at times. He has had no fevers or chills but has had a productive cough. He states he was diagnosed with asthma at the age of 7 and he was hospitalized once at the age of 18. He reports he is normally compliant with his Advair and takes his ProAir every 4 hours on a daily basis. He reports taking Zyrtec for allergies but that has been a common trigger of his asthma. He smoked briefly for a few years about a pack a month but quit 3 to 4 years ago. He began to vape about 8 months ago but quit after 2 months. He does s moke marijuana about 2 times a week. He did receive a vaccine with 2 doses against COVID-19 but has not received a booster dose and his last dose was about 1 year ago. Given he was still dyspneic with audible wheezing in the emergency department despite steroids and nebulizer treatments, medicine was consulted for admission. - HOSPITAL COURSE Hospital Course: Patient was admitted and started on Solu-Medrol 40 mg IV 3 times daily. He also received DuoNeb breathing treatments as needed. On the day before at discharge his oxygen saturation dropped into the 80s with ambulation so he was treated for another 24 hours. On the day of discharge he was breathing comfortably on room air. There was minimal wheeze heard on auscultation. He was advised to follow-up with the vacation guide/farm tractor mechanic for further management. He may need a long-acting muscarinic antagonist. He expressed understanding. He has an upcoming appointment in July 2021 with pulmonology. The rest of his hospital stay was unremarkable. - ALLERGIES Allergies/Adverse Reactions: Allergies Allergy/AdvReac Type Severity Reaction Status Date / Time oregano Allergy Rash Verified 07/21/21 17:40 - MEDICATIONS Home Medications: Ambulatory Orders Medication Instructions Recorded Confirmed Cetirizine [ZyrTEC] 1 tab PO DAILY 12/07/15 07/21/21 Albuterol Sulf [Ventolin Hfa 1 - 2 puffs INH Q4HR PRN #1 inhaler 07/21/21 07/21/21 Inhaler] Chlorthalidone 25 mg PO DAILY 07/21/21 07/21/21 Escitalopram [Lexapro] 10 mg PO DAILY 07/21/21 07/21/21 Fluticasone/Salmeterol [Advair 1 each INH DAILY 07/21/21 07/21/21 250-50 Diskus] predniSONE [Deltasone] 10 mg PO [id number] #42 tab 07/21/21 07/21/21 - PHYSICAL EXAM AT DISCHARGE General Appearance: positive: No acute distress, Alert Eyes Bilateral: positive: PERRL, EOMI ENT: positive: ENT inspection nml, No signs of dehydration Neck: positive: No JVD, Trachea midline Respiratory: positive: Chest non-tender, No respiratory distress, Wheezes (mild) Cardiovascular: positive: Regular rate & rhythm, No murmur Abdomen: positive: Non-tender, No organomegaly, Nml bowel sounds, No distention. negative: Guarding, Rebound Back: positive: Nml inspection Skin: positive: Color nml, No rash, Warm, Dry Extremities: positive: Non-tender, Full ROM, Nml appearance Neurologic/Psychiatric: positive: Oriented x3, Mood/affect nml - LABS Result Diagrams: 07/24/21 04:18 07/24/21 04:18 - TIME SPENT Time Spent in Discharge (Minutes): 15
--- NOTE | 2021-07-24 07:24 | Discharge Plan ---
Discharge Plan Problem Reviewed?: Yes Disposition: Home, Self Care Condition: Stable Diet: Regular Activity Restrictions: Activity as Tolerated Health Concerns: You were admitted with shortness of breath on . This was due to asthma exacerbation triggered by an allergen. Over the course of your hospital stay you were treated with IV steroids and breathing treatment. On the day of discharge your symptoms had improved significantly. You were discharged with instructions to complete steroid taper you have at home. You expressed understanding and agreeable to this. You have been advised to follow-up with group president for prescription of medications to help minimize the chances of recurrences of asthma exacerbation. You have been appointment coming up this may with a group president which she plans to keep. You are being discharged in stable condition. You may follow-up with your primary care physician as needed. No Smoking: If you smoke, Please STOP! Call for help. Follow-up with: Nasim Parra MD [Primary Care Provider] -
[2021-07-24 08:05] VITALS: BP 132/92
[2021-07-24] MEDS: ESCITALOPRAM 10 MG TABLET PO SCH (09:03)
[2021-07-24] MEDS: hydroCHLOROthiazide 12.5 MG CAPSULE PO SCH (09:04)
== END 2021-07-24 09:29 | disposition home or self-care (01) ==
LOC: ED 17:28 → MS2 18:22
PROVIDERS: ADMIT Internal Medicine; ATTEND Internal Medicine
DX: J45.51 Severe persistent asthma with (acute) exacerbation (principal); B34.8 Other viral infections of unspecified site; I10 Essential (primary) hypertension; F41.9 Anxiety disorder, unspecified; Z20.822 Contact with and (suspected) exposure to COVID-19; Z87.891 Personal history of nicotine dependence
CPT/HCPCS: 36415; 71046; 80048; 85025; 87633; 94150; 94640; 94664; 94761; 96374; 96375; 96376; A9270; G0378

== ENCOUNTER 2021-11-27 08:00 | Outpatient (CLI) | payer MEDICAID ==
--- NOTE | 2021-11-27 18:23 | XRAY Report ---
PROCEDURE: Wrist 3 View RT INDICATIONS: RIGHT WRIST PAIN TECHNIQUE: 3 views of the wrist were acquired. COMPARISON: 10/30/2021 FINDINGS: Bones: No fractures or dislocations. No suspicious bony lesions. Small ossicle on the lateral view remains unchanged Soft tissues: No suspicious soft tissue calcifications. IMPRESSION: Unremarkable right wrist radiographs Reviewed by: Naif Soriano MD on 11/27/2021 5:22 PM [facility] Approved by: Naif Soriano MD on 11/27/2021 5:22 PM [facility] Station ID: [id number]
== END 2021-11-27 23:59 | disposition home or self-care (01) ==
LOC: DI.WOS 08:00
PROVIDERS: ATTEND Physician Assistant
DX: S63.591D Other specified sprain of right wrist, subsequent encounter (principal)

== ENCOUNTER 2022-01-25 13:10 | Emergency (ER) | payer MEDICAID ==
[2022-01-25 13:19] VITALS: BP 155/94
== END 2022-01-25 17:15 | disposition left against medical advice (07) ==
LOC: ED 13:10
DX: Z53.21 Procedure and treatment not carried out due to patient leaving prior to being seen by health care provider (principal)

== ENCOUNTER 2022-01-31 15:09 | Emergency (ER) | payer MEDICAID ==
[2022-01-31 15:50] VITALS: BP 187/110
--- NOTE | 2022-01-31 17:09 | ED Physician Documentation ---
History of Present Illness - Stated complaint Stated Complaint: ASTHMA - Chief complaint Chief Complaint: Resp - Additonal information Additional information: [id number] male presents emergency department for evaluation of congestion low-grade temperature elevations. Does have a history of asthma and uses used his nebulizer 4-6 times over the last few days. His symptoms however originally began just before . He lives at home with a small child who has tested positive for both RSV and influenza. When he spoke to the doctor about this a bit ago he was started on a prednisone taper and is scheduled to begin methylprednisolone tomorrow. He has no fevers. No nausea or vomiting. In the room he appears rather well. Speaking full complete sentences. Room air saturations at 97%. He is able to take full deep breaths Review of Systems Constitutional: reports: Fever. denies: Chills Nose: reports: Rhinorrhea / runny nose, Congestion Cardiac: reports: Reviewed and negative Respiratory: reports: Dyspnea, Cough, Wheezing. denies: Hemoptysis GI: reports: Reviewed and negative : reports: Reviewed and negative Skin: reports: Reviewed and negative PD PAST MEDICAL HISTORY - Past Medical History Cardiovascular: Hypertension Respiratory: Asthma Neuro: None Endocrine/Autoimmune: None GI: None : None HEENT: None Psych: Anxiety Musculoskeletal: None Derm: None - Past Surgical History Past Surgical History: Yes Ortho: Other - Present Medications Home Medications: Ambulatory Orders Medication Instructions Recorded Confirmed Cetirizine [ZyrTEC] 1 tab PO DAILY 12/07/15 07/21/21 Albuterol Sulf [Ventolin Hfa 1 - 2 puffs INH Q4HR PRN #1 inhaler 07/21/21 07/21/21 Inhaler] Chlorthalidone 25 mg PO DAILY 07/21/21 07/21/21 Escitalopram [Lexapro] 10 mg PO DAILY 07/21/21 07/21/21 Fluticasone/Salmeterol [Advair 1 each INH DAILY 07/21/21 07/21/21 250-50 Diskus] Albuterol 2.5 mg INH Q4H PRN #60 amp 07/24/21 Albuterol Sulf [Ventolin Hfa 1 - 2 puffs INH Q4HR PRN #1 inhaler 07/24/21 Inhaler] Ipratropium/Albuterol [Combivent 4 gm IH 01/25/22 01/25/22 Respimat] Montelukast [Singulair] 10 mg PO QPM 01/25/22 01/25/22 Albuterol 2.5 mg INH Q4H PRN #30 ml 01/31/22 Albuterol Sulf [Ventolin Hfa 1 - 2 puffs INH Q4HR PRN #1 each 01/31/22 Inhaler] - Allergies Allergies/Adverse Reactions: Allergies Allergy/AdvReac Type Severity Reaction Status Date / Time oregano Allergy Rash Verified 01/31/22 15:50 - Social History Does the pt smoke?: No Smoking Status: Never smoker Does the pt drink ETOH?: Yes Does the pt have substance abuse?: Yes - Immunizations Immunizations are current?: Yes - POLST Patient has POLST: No PD ED PE NORMAL - General General: Alert and oriented X 3, No acute distress, Well developed/nourished - HEENT HEENT: Atraumatic, Moist mucous membranes - Neck Neck: Supple, no meningeal sign, No adenopathy - Cardiac Cardiac: RRR, No murmur - Respiratory Respiratory: No respiratory distress. No: Clear bilaterally (Very faint scattered expiratory wheeze) - Abdomen Abdomen: Normal bowel sounds, Soft, Non tender - Back Back: No CVA TTP, No spinal TTP - Derm Derm: Normal color, Warm and dry, No rash - Extremities Extremities: No deformity, No tenderness to palpate, Normal ROM s pain - Neuro Neuro: Alert and oriented X 3, major gifts director 2-12 intact Eye Opening: Spontaneous Motor: Obeys Commands Verbal: Oriented GCS Score: 15 Results - Vitals Vitals: Vital Signs - 24 hr 01/31/22 15:44 Temperature 36.8 C Heart Rate 93 Respiratory 20 Rate Blood Pressure 187/110 H O2 Saturation 98 Oxygen O2 Source Room air - Rads (name of study) cxr Radiology: Final report received (No acute cardiopulmonary process) PD MEDICAL DECISION MAKING - ED course Complexity details: reviewed results, re-evaluated patient, considered differential, d/w patient ED course: 36-year-old male presents emergency department for evaluation of a number of days cough cold congestion. He is living in a household where a young child has tested positive for influenza and RSV. He has been using prednisone at home but still continues to have some wheeze. He has been using his albuterol nebulizer 4-6 times a day on average. 9 on presentation he appears remarkably well. He takes full deep breaths and speaks in full sentences. No hypoxia on room air. When we listen to him he has some very faint scattered expiratory wheeze. Chest x-ray did not show acute focal opacity or findings. I deferred PCR testing knowing that he has had exposure to RSV and influenza. He is also well outside the window of treatment for consideration of Tamiflu in the setting of possible influenza. 9 patient is advised to continue his outpatient medications. No antibiotics reliably given that there is no findings of pneumonia. I did send a prescription for albuterol to the preferred pharmacy of the patient. We discussed usual emergent return precautions Departure - Departure Disposition: Home, Self Care Clinical Impression: Viral URI with cough Asthma with acute exacerbation in adult Qualifiers: Asthma severity: mild Asthma persistence: intermittent Qualified Code(s): J45.21 - Mild intermittent asthma with (acute) exacerbation Condition: Stable Record reviewed to determine appropriate education?: Yes Prescriptions: Albuterol Sulf [Ventolin Hfa Inhaler] 1 - 2 puffs INH Q4HR PRN #1 each PRN Reason: Shortness Of Air/Wheezing Albuterol 2.5 mg INH Q4H PRN #30 ml PRN Reason: Wheezing Comments: Kale you are seen today in the emergency department because you have had some cough and shortness of air over the last few weeks. You are completing a prednisone taper and you are scheduled to begin methylprednisolone tomorrow. Today in the emergency department your chest x-ray is normal and does not show any findings for pneumonia. You are living in a household where young child is tested positive for RSV and influenza. You likely have acquired 1 or both of these as a cause for your asthma exacerbation. I do recommend that you use the albuterol 4-6 times a day at home. I have sent a refill for this to your pharmacy. If you find that despite using the albuterol you continue to have labored breathing, you develop any new fevers, have severe chest pain or any fainting episodes and please return immediately to the ER for second evaluation.
--- NOTE | 2022-01-31 17:33 | XRAY Report ---
PROCEDURE: Chest 1 View X-Ray INDICATIONS: chest pain TECHNIQUE: One view of the chest was acquired. COMPARISON: 11/22/2017, 07/21/2021 FINDINGS: Surgical changes and devices: None. Lungs and pleura: No pleural effusions or pneumothorax. Lungs are clear. Mediastinum: Mediastinal contours appear normal. Heart size is normal. Bones and chest wall: No suspicious bony lesions. Overlying soft tissues appear unremarkable. IMPRESSION: Normal portable chest, without a cause of chest pain identified. Reviewed by: Philip Cisse MD on 01/31/2022 4:31 PM [facility] Approved by: Philip Cisse MD on 01/31/2022 4:31 PM [facility] Station ID: [id number]
== END 2022-01-31 18:34 | disposition home or self-care (01) ==
LOC: ED 15:09
DX: J45.21 Mild intermittent asthma with (acute) exacerbation (principal); J06.9 Acute upper respiratory infection, unspecified; B97.89 Other viral agents as the cause of diseases classified elsewhere; I10 Essential (primary) hypertension
CPT/HCPCS: 99283

== ENCOUNTER 2022-03-29 11:04 | Outpatient (CLI) | payer MEDICAID ==
[2022-03-29 12:24] VITALS: BP 172/112
--- NOTE | 2022-03-29 12:24 | SLEEP CARE CONSULTATION ---
Information from patient questionnaire entered by Man Avila. I have reviewed and concur with the information entered by Man Avila. This document represents the service I personally performed and the decisions made by me, Malaika Castle MD, [facility]. History of Present Illness Service Date and Time: 03/29/2022 1104 Reason for Visit: New patient Chief Complaint: reports: Snoring, Excessive daytime sleepiness, Observed pauses in breathing, Fatigue, Frequent awakenings at night Date of Onset: 9YRS Usual bedtime: VARIES Time it takes to fall asleep: VARIES Snores at night: Yes Observed to quit breathing while asleep: Yes Reasons for waking at night: reports: Snoring, Gasping for air Toss, Turn, or Twitch while sleeping: Yes Recalls having dreams: Yes Feels refreshed in the morning: No Morning headache: No Takes day naps: Yes Dreams during day naps: No Prior sleep studies: No Additional HPI information: I had the pleasure of seeing Mr. Manzo along with his today regarding the possibility of his having obstructive sleep apnea-hypopnea. As you know, he is a 36-year-old gentleman who complains of loud snore, observed apneas, frequent awakenings, nocturnal choking, unrefreshed sleep, and excessive daytime sleepiness for the past 9 years. 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 His can still sleep in the same bed. He has awakened occasionally because of his own snoring, choking, and having to gasp for air. There is a lot of tossing and turning in his sleep. No somniloquy (sleep talking) or somnambulism (sleep walking) but he has leg twitching. Generally, he can recall having dreams. In the morning he also gets up at variable times, not feeling refreshed nor rested. He does not have a morning headache. During the day he complains of feeling does not feel sleepy and fatigued. His score on [place] Sleepiness Scale is 9 out of 24. He never has fallen asleep while driving nor has had any accident due to sleepiness. He usually takes naps during the day. He denies having impaired concentration during the day. 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 Patient is and lives [place]. Have you smoked in the past 12 months: No Alcohol use: Yes Alcohol amount and frequency: ON HOLIDAYS Caffeine use: Yes Caffeine amount and frequency: 1-2 CUPS COFFEE DAILY Family History Family history of sleep disordered breathing: Yes Family Hx Sleep Apnea: Father: Snoring, Sleep apnea - Treated Allergies and Home Medications Known drug allergies: No Drug allergies reviewed: Yes Home medication list reviewed: Yes Allergy and home medication list: Allergies oregano Allergy (Verified 01/31/22 15:50) Rash Review of Systems Weight gain over past 5 years: 80 Cardiovascular: reports: high blood pressure Respiratory: reports: shortness of breath, wheeze Gastrointestinal: reports: nausea, vomitting Urinary: denies: incontinence, frequency, urgency, impotence, other Neurological: denies: headaches, seizure, head trauma, disorientation, speech dysfunction, gait or balance problems, fainting or unconsciousness, other Psychiatric: reports: anxiety Ear/Nose/Throat: reports: nasal congestion, sinus problems, dry mouth/throat Endocrine: reports: sluggishness, too hot or cold, excessive thirst Musculoskeletal: reports: neck pain, back pain, muscle pain or cramping Immunologic: reports: sneezing, allergies to food or environment Physical Exam Vital signs obtained and entered by: MAN Bateman MA Blood Pressure: 172/112 (LEFT ARM) Cuff size: regular Heart Rate: 64 O2 Saturation: 96 Height: 5 ft 11 in Weight: 296 lb Body Mass Index: 41.3 BMI Classification: Morbidly Obese Neck circumference: 18.5 Mood/affect: Normal HEENT: No craniofacial malformation Nostrils: patent to airflow Turbinates: normal Septum: midline Mouth and throat: narrow oropharynx Soft palate: long Hard palate: normal Uvula: normal Uvula visualization: 50% Mallampati Class II Tongue: normal in size Tonsils: small Chin and jaw: normal size and position Neck: normal w/o lymphadenopathy or thyromegaly Heart: regular rate and rhythm Lungs: clear bilaterally Extremities: no edema or clubbing Neurologic: intact Impression and Plan IMPRESSION: 1. Obstructive Sleep Apnea-Hypopnea Syndrome, as suggested by history of loud and irregular snoring, observed cessation of breath while asleep, frequent awakenings during the night, nocturnal choking, unrefreshed sleep, and daytime hypersomnolence. Narrow oropharynx and obesity are common predisposing factors for obstructive sleep apnea-hypopnea syndrome. Untreated obstructive sleep apnea can also cause hypertension. I recommend proceeding to polysomnography to confirm the diagnosis and to assess severity. If he has significant sleep disordered breathing, a manual CPAP titration study will also be performed to find the optimal treatment pressure. I informed the patient of what the sleep studies involve and after some discussion, he agreed to proceed. Plan: 1. Schedule polysomnography + manual CPAP titration study and return in 1 to 2 weeks after the study to discuss result and initiate therapy. 2. Avoid long distance driving or when feeling sleepy. 3. Avoid alcohol, sedative and muscle relaxant around bedtime. 4. Attempt to lose weight. Counseling Topics: Weight control Prescriptions: CPAP, Other (sleep study) Follow up with Sleep Care in: 1-2 months Visit Type: In Office Other Participants: Spouse/Significant Other Time Spent with Patient (minutes): 15 Provider Statement: I spent 100% of the Face to Face Visit with the patient with greater than 50% spent counseling the patient and coordination of care.
== END 2022-03-29 11:05 | disposition home or self-care (01) ==
LOC: SC 11:04
PROVIDERS: ATTEND Internal Medicine Pulmonary Disease
DX: G47.10 Hypersomnia, unspecified (principal); G47.8 Other sleep disorders; R06.81 Apnea, not elsewhere classified; R06.83 Snoring; E66.01 Morbid (severe) obesity due to excess calories; Z68.41 Body mass index [BMI] 40.0-44.9, adult
CPT/HCPCS: 99202; 99212

== ENCOUNTER 2022-04-16 10:31 | Outpatient (CLI) | payer MEDICAID | END 2022-04-16 10:32 | disposition home or self-care (01) | LOC: SC 10:31 | PROVIDERS: ATTEND Internal Medicine Pulmonary Disease | DX: G47.33 Obstructive sleep apnea (adult) (pediatric) (principal); R09.02 Hypoxemia | CPT/HCPCS: 95806 ==

== ENCOUNTER 2022-05-03 11:24 | Outpatient (CLI) | payer MEDICAID ==
[2022-05-03 22:00] VITALS: BP 146/92
--- NOTE | 2022-05-03 22:00 | SLEEP CARE CONSULTATION ---
Information from patient questionnaire entered by Man Avila. I have reviewed and concur with the information entered by Man Avila. This document represents the service I personally performed and the decisions made by me, Malaika Castle MD, [facility]. History of Present Illness Service Date and Time: 05/03/2022 1124 Initial [place] Sleepiness Scale score: 10 (03/29/22) Current [place] Sleepiness Scale score: 10 (05/03/22) Additional HPI information: Mr. Manzo returned for follow up of the sleep study he had on 04/16/22. The polysomnography showed that very severe obstructive sleep apnea-hypopnea, with an AHI of 60.0/hr and ce SaO2 of 85%. During the study, the patient had 429 apneas (429 obstructive, 0 central, 0 mixed) and 45 hypopneas. The longest episode lasted 75.0 seconds. The respiratory events occurred slightly more frequently during supine sleep (supine AHI was 76.4 and non-supine, 45.25). Hypoxemia (ICD-10 R09.02) was mild, with the lowest oxygen saturation of 85 % and 6.6 minutes with SaO2 under 90%. Baseline oxygen saturation was normal (Average oxygen saturation was 94%). The patient was informed of these findings. I explained to him the pathophysiology behind obstructive sleep apnea. We then spent quite a bit of time discussing different treatment options. For mild obstructive sleep apnea, surgery and oral appliance are alternatives to nasal CPAP therapy but in moderate or severe cases, nasal CPAP is the most effective and reliable treatment. Weight loss in an obese individual is strongly recommended. After some discussion, he opted to go with the nasal CPAP therapy. I explained to him how CPAP machine works and what to expect when using the machine. He is encouraged to use CPAP every night especially in the first 2 to 3 nights in order to get used to it. He should call his CPAP supplier or me to discuss any mechanical problem that may occur. If he snores or feels like he is not getting enough air from the machine, he should notify me and I will increase the pressure. Sleep Study - Results Type of Sleep Study: Home sleep study (COMPLETED 04/16/22) Prior sleep studies: No Allergies and Home Medications Drug allergies reviewed: Yes Home medication list reviewed: Yes Allergy and home medication list: Allergies oregano Allergy (Verified 03/29/22 11:20) Rash Review of Systems Review of systems same as previous: Yes Physical Exam Vital signs obtained and entered by: MAN Bateman MA Blood Pressure: 146/92 (LEFT ARM) Cuff size: long Heart Rate: 77 O2 Saturation: 96 Height: 5 ft 11 in Weight: 299 lb 12.8 oz Body Mass Index: 41.8 BMI Classification: Morbidly Obese Impression and Plan IMPRESSION: 1. Obstructive Sleep Apnea-Hypopnea Syndrome, very severe, associated with mild hypoxemia. Obviously, this is the cause of the patients symptoms of unrefreshed sleep, and excessive daytime sleepiness. As mentioned above, the patient will be started on an autoCPAP set between 5 and 15 cmH2O. Depending on his response and compliance he may be brought back for an overnight CPAP titration study. PLAN: 1. Prescription made for an autoCPAP, heated humidifier, and related supplies through [facility]. 2. Attempt to lose weight and avoid alcohol consumption near bedtime. 3. The patient is again cautioned about driving until his sleepiness completely resolves on the CPAP therapy. 4. Return for follow up after one month of using the CPAP. Counseling Topics: Weight control Prescriptions: Auto CPAP Follow up with Sleep Care in: 1-2 months Visit Type: In Office Time Spent with Patient (minutes): 15 Provider Statement: I spent 100% of the Face to Face Visit with the patient with greater than 50% spent counseling the patient and coordination of care.
== END 2022-05-03 11:25 | disposition home or self-care (01) ==
LOC: SC 11:24
PROVIDERS: ATTEND Internal Medicine Pulmonary Disease
DX: G47.33 Obstructive sleep apnea (adult) (pediatric) (principal); E66.01 Morbid (severe) obesity due to excess calories; Z68.41 Body mass index [BMI] 40.0-44.9, adult
CPT/HCPCS: 99212

== ENCOUNTER 2022-09-02 13:21 | Outpatient (CLI) | payer MEDICAID ==
--- NOTE | 2022-09-02 13:20 | SLEEP CARE CONSULTATION ---
Information from patient questionnaire entered by Ben Cho. I have reviewed and concur with the information entered by Ben Cho. This document represents the service I personally performed and the decisions made by , Cheryl Pat ARNP. History of Present Illness Service Date and Time: 09/02/2022 1300 Previous diagnosis: Very Severe, Obstructive Sleep Apnea-Hypopnea Syndrome AHI: 60 (in 2022) Reason for follow up: first compliance (1st compliance, set up 05/13, Airsense 11) Equipment type: CPAP (Resmed Airsense 11, s/u 04/2022) Equipment obtained from: Other ([facility], got initial supplies) Mask style: Full face Backup mask available: No (will keep old mask when replaced) Last cushion change: 1 month Prior sleep studies: No Type of Sleep Study: Home sleep study (COMPLETED 04/16/22) HPI additional information: SHERRY ORTIZ was diagnosed to have very severe, AHI 60, obstructive sleep apnea-hypopnea syndrome and returned today for CPAP therapy first compliance follow-up. Sleep Study - Results Type of Sleep Study: Home sleep study (COMPLETED 04/16/22) Prior sleep studies: No Year and Where: 2022 [facility] CPAP Compliance Data - Data Reviewed with Patient Average duration of nightly device use: 3 hours 44 mins Compliance rate %: 37 (30 days used) Current pressure setting (cmH2O): 9-14 (avg 13.8, max 13.9) Average residual AHI: 2.6 Central apnea: 0.2 Obstructive apnea: 1.1 Hypopnea: 1 Subjective Missed days of use due to: reports: family emergency, other (takes off to use inhaler and forget to put back on) Patient concerns: denies: aerophagia, mask discomfort, air blowing in eyes, mask leak noise, condensation in mask/hose, nasal congestion, dry mouth, nose, throat, epistaxis Observed to snore while using device: Yes (per ) Current pressure setting perceived as: too low On therapy, patient: reports: awakening more refreshed (especially at first) Initial [place] Sleepiness Scale score: 10 (03/29/22) Current [place] Sleepiness Scale score: 10 Allergies and Home Medications Known drug allergies: No Drug allergies reviewed: Yes Home medication list reviewed: Yes (no changes) Allergy and home medication list: Allergies oregano Allergy Rash Review of Systems Review of systems same as previous: Yes (no changes) Physical Exam Vital signs obtained and entered by: Cheryl Holt NP Height: 5 ft 11 in Weight: 299 lb (per pt) Body Mass Index: 41.7 BMI Classification: Morbidly Obese Impression and Plan 1. Obstructive Sleep Apnea-Hypopnea Syndrome, very severe, with fair treatment compliance and good apnea control. On CPAP therapy, the patient did feel at first that he was more refreshed but not really since. He is only averaging 3 hours and 44 minutes when using his device. He tells me that sometimes he will wake up feeling like he is suffocating in the mask and he definitely needs more pressure when he first puts the mask on at night. He states his also tells him that he is snoring when using his CPAP. The patients pressure will be changed to autoCPAP 12-16 cmH20 to reduce snoring and improve compliance due to feeling pressure too low. Patient advised to contact me if pressure change is uncomfortable so that it can be adjusted. Goals for apnea control discussed. Compliance guidelines reviewed for insurance coverage. Patient was counseled on the difference between meeting compliance and optimal use of CPAP. Optimal use of CPAP is use of CPAP with all sleep to obtain maximum benefit of treatment. Patient is encouraged to use CPAP with all sleep. Patient's apnea severity and rationale for treatment to reduce apnea, improve sleep quality and reduce cardiovascular and cerebrovascular events was reviewed. I also reviewed the benefit of consistent device use of CPAP for hypertension, anxiety and asthma. 2. Obesity, unspecified. Currently patients BMI is 41.7. Obesity increases the risk of apnea, CPAP pressure requirements and overall health risks especially c ardiovascular and diabetes. Thus patient is advised to lose weight. * Change auto CPAP pressure to 12-16 cmH2O * Increase ramp starting pressure to 8 cmH2O * Notify me if snoring with mask or feeling that the pressure is too much or too little * Attempt to lose weight * Call this office if any problems using CPAP * Return for follow up in 1-2 months, or sooner if concerns arise Counseling Topics: Spare mask, Weight loss health impact Visit Type: Telehealth Video Video Type: Doximity Patient Location: Home Location of Provider: Office Patient agrees and consents to this telehealth visit type: Yes Patient agrees to have their insurance billed: Yes Time Spent with Patient (minutes): 21 Provider Statement: I spent 100% of the Telehealth Video Call with the patient with greater than 50% spent counseling the patient and coordination of care.
== END 2022-09-02 13:22 | disposition home or self-care (01) ==
LOC: SC 13:21
PROVIDERS: ATTEND Nurse Practitioner Family
DX: G47.33 Obstructive sleep apnea (adult) (pediatric) (principal); E66.01 Morbid (severe) obesity due to excess calories; Z68.41 Body mass index [BMI] 40.0-44.9, adult

== ENCOUNTER 2022-11-02 09:21 | Outpatient (CLI) | payer MEDICAID ==
--- NOTE | 2022-11-02 10:11 | SLEEP CARE CONSULTATION ---
Information from patient questionnaire entered by Tashia Avila. I have reviewed and concur with the information entered by Tashia Avila. This document represents the service I personally performed and the decisions made by me, Cheryl Pat ARNP. History of Present Illness Service Date and Time: 11/02/2022920 Previous diagnosis: Very Severe, Obstructive Sleep Apnea-Hypopnea Syndrome AHI: 60 Reason for follow up: other (2 MONTH F/U) Accompanied by: Spouse (Telena) Equipment type: CPAP (PT CPAP WAS REPOED; 11) Equipment obtained from: Other ([facility]) Mask style: Full face Prior sleep studies: No Year and Where: 2022 [facility] [place] Type of Sleep Study: Home sleep study (COMPLETED 04/16/22) HPI additional information: KALE ORTIZ was diagnosed to have very severe, AHI 60, obstructive sleep a pnea-hypopnea syndrome and returned today with spouse for CPAP therapy two month follow-up. Sleep Study - Results Type of Sleep Study: Home sleep study (COMPLETED 04/16/22) Prior sleep studies: No Year and Where: 2022 [facility] [place] CPAP Compliance Data - Data Reviewed with Patient Average duration of nightly device use: 3 hours 25 minutes Compliance rate %: 23 ( days used; 08/21/2022-09/19/2022) Current pressure setting (cmH2O): 12-16 Average residual AHI: 1.8 Central apnea: 0.1 Obstructive apnea: 0.5 Average large leak: 5.3 Subjective Missed days of use due to: reports: mask issues, other (machine being rep osessed) Patient concerns: reports: mask discomfort (pulling mask off due to airflow changes), mask leak noise, dry mouth, nose, throat. denies: aerophagia, air blowing in eyes, condensation in mask/hose, nasal congestion, epistaxis Observed to snore while using device: Yes Current pressure setting perceived as: comfortable (when first put it on; lower when it wakes him up a few hours later) On therapy, patient: reports: sleeping better, other ( states that he was taking less naps and up earlier in the morning; seemed to have more energy during day). denies: drowsiness while driving Initial [place] Sleepiness Scale score: 10 (03/29/22) Current [place] Sleepiness Scale score: 13 () Allergies and Home Medications Known drug allergies: No Drug allergies reviewed: Yes Home medication list reviewed: Yes (no changes) Allergy and home medication list: Allergies oregano Allergy (Verified 11/01/22 09:02) Rash Review of Systems Review of systems same as previous: Yes (no changes) Physical Exam Vital signs obtained and entered by: TASHIA Bateman MA Blood Pressure: 132/78 (LEFT ARM) Cuff size: long Heart Rate: 97 O2 Saturation: 59 Height: 5 ft 11 in Weight: 299 lb 9.6 oz Body Mass Index: 41.8 BMI Classification: Morbidly Obese Impression and Plan 1. Obstructive Sleep Apnea-Hypopnea Syndrome, very severe. After some discussion, Kale and his seem to agree that he is sleeping better, having less daytime sleepiness and increased daytime energy. Patient has been asked to return his CPAP repossessed due to poor compliance. He states he felt the pressure was good when he put the mask on, ramp starting pressure at 8 cmH2O, but after a few hours he would wake up feeling air hunger and take the mask off. He has also been taking off the mask when not realizing it when asleep. His will nudge him awake to put mask on, but most of time he will turn of and return to sleep. He stopped using it when he was notified that they wanted him to return the device. There was a delay in getting the return box in the mail. He is ready to return it if needed. I had my office staff call and ask what could be done and they may be able to set him up on a second APAP trial and not return his CPAP. We will submit my notes and see if this can happen. If not then we will need to re-qualify him through another polysomnography to confirm the diagnosis and to assess severity. He voiced understanding and I obtained agreement with plan of care. The pathophysiology of obstructive sleep apnea- hypopnea syndrome was discussed with the patient and health risks of cardiovascular and cerebrovascular disease if not treated. Risks of drowsy driving discussed in detail and patient advised to avoid long distance driving and to tack puller machine at the first sign of drowsiness. Patient agreed to plan. Patient's apnea severity and rationale for treatment to reduce apnea, improve sleep quality and reduce cardiovascular and cerebrovascular events was reviewed. I also reviewed the benefit of consistent device use of CPAP for hypertension, asthma and anxiety. 2. Obesity, unspecified. Currently patients BMI is 41.8. He is trying to lose weight by walking a lot with his . Obesity increases the risk of apnea, CPAP pressure requirements and overall health risks especially cardiovascular and diabetes. Thus patient is advised to lose weight. * Try to get a second APAP trial, if approved * If unable to get approval, will Schedule polysomnography/HST. * Avoid long distance driving or driving when feeling sleepy. * Avoid alcohol, sedative and muscle relaxant around bedtime. * Attempt to lose weight. * Review instructions provided by trained office staff on how to prepare for the sleep study. * Return for follow-up once we know the plan. Counseling Topics: Weight loss health impact Visit Type: In Office Other Participants: Spouse/Significant Other Time Spent with Patient (minutes): 29 Provider Statement: I spent 100% of the Face to Face Visit with the patient with greater than 50% spent counseling the patient and coordination of care.
[2022-11-02 10:13] VITALS: BP 132/78; O2SAT 59
== END 2022-11-02 09:22 | disposition home or self-care (01) ==
LOC: SC 09:21
PROVIDERS: ATTEND Nurse Practitioner Family
DX: G47.33 Obstructive sleep apnea (adult) (pediatric) (principal); E66.01 Morbid (severe) obesity due to excess calories; Z68.41 Body mass index [BMI] 40.0-44.9, adult
CPT/HCPCS: 99212; 99213

== ENCOUNTER 2022-12-25 13:19 | Emergency (ER) | payer MEDICAID ==
[2022-12-25 13:28] VITALS: BP 150/90; O2SAT 97
--- NOTE | 2022-12-25 14:40 | ED Physician Documentation ---
History of Present Illness - Stated complaint Stated Complaint: BACK PX/ABD PX - Chief complaint Chief Complaint: Back Pain - Additonal information Additional information: 37-year-old male presents emergency department for evaluation of low back pain. Began having back pain in early September while camping. He actually cut the camping trip short due to the pain. However it resolved after several days. He began having pain again in October and now into November. Pain happens most every day. No radiation to the legs. No fevers, vomiting. No saddle anesthesia, loss of bowel or bladder fluids. No personal history of cancer or intravenous drug use. He has been using Tylenol or Motrin without relief. Now finding he has discomfort with sitting on the couch for long periods of time. No paresthesias or leg muscle weakness. Review of Systems Constitutional: denies: Fever Cardiac: reports: Reviewed and negative Respiratory: reports: Reviewed and negative Musculoskeletal: reports: Back pain Neurologic: reports: Reviewed and negative Psychiatric: reports: Reviewed and negative PD PAST MEDICAL HISTORY - Past Medical History Past Medical History: Yes Cardiovascular: Hypertension Respiratory: Asthma, Sleep apnea, CPAP use Neuro: None Endocrine/Autoimmune: None GI: None : None HEENT: None Psych: Anxiety Musculoskeletal: None Derm: None - Past Surgical History Past Surgical History: Yes Ortho: Arthroscopic surgery, Other - Present Medications Home Medications: Ambulatory Orders Medication Instructions Recorded Confirmed Cetirizine [ZyrTEC] 1 tab PO DAILY 12/07/15 05/03/22 Chlorthalidone 25 mg PO DAILY 07/21/21 05/03/22 Escitalopram [Lexapro] 10 mg PO DAILY 07/21/21 05/03/22 Fluticasone/Salmeterol [Advair 1 each INH DAILY 07/21/21 12/25/22 250-50 Diskus] Montelukast [Singulair] 10 mg PO QPM 01/25/22 05/03/22 Albuterol Sulf [Ventolin Hfa 1 - 2 puffs INH Q4HR PRN #1 each 01/31/22 12/25/22 Inhaler] hydroCHLOROthiazide 50 mg ORAL DAILY 05/03/22 12/25/22 [Hydrochlorothiazide] Cyclobenzaprine [Flexeril] 10 mg PO TID PRN #20 tablet 12/25/22 HYDROcod/ACETAM 5/325 [Tullos 5/325] 1 tablet PO BID PRN #15 tablet 12/25/22 - Allergies Allergies/Adverse Reactions: Allergies Allergy/AdvReac Type Severity Reaction Status Date / Time oregano Allergy Rash Verified 12/25/22 13:25 - Social History Does the pt smoke?: No Smoking Status: Former smoker Does the pt drink ETOH?: Yes Does the pt have substance abuse?: Yes Substance Use and Type: Marijuana - Immunizations Immunizations are current?: Yes - POLST Patient has POLST: No PD ED PE NORMAL - General General: Alert and oriented X 3, No acute distress - Cardiac Cardiac: RRR, No murmur - Respiratory Respiratory: Clear bilaterally - Abdomen Abdomen: Normal bowel sounds, Soft, Non tender, Non distended - Back Back: No CVA TTP, No spinal TTP (Unable to elicit any tenderness with palpation of the midline thoracic or lumbar vertebrae.), Other (Full range of motion of the lower lumbar spine. Normal gait. Motor strength 5 of 5 bilateral lower extremities. 2+ patellar reflexes bilaterally) - Derm Derm: Warm and dry, No rash Results - Vitals Vitals: Vital Signs - 24 hr 12/25/22 13:25 Temperature 36.7 C Heart Rate 88 Respiratory 16 Rate Blood Pressure 150/90 H O2 Saturation 97 Oxygen O2 Source Room air PD Medical Decision Making - ED course Complexity details: d/w patient ED course: 37-year-old male presents emergency department for evaluation of several months acute low back pain in the absence of falls or trauma. No anticoagulation. No fevers. No red flags on history or exam. Pain is nonspecific and I was unable to reproduce pain today in the emergency department. Given lack of urinary symptoms and flank or abdominal tenderness I have lower suspicion for occult ureter stones. Patient is advised to continue Tylenol and Motrin. A limited amount of Tullos and Flexeril is being sent to the pharmacy. Advised to follow close with PCP. May benefit from referral to physical therapy. The usual emergent return precautions worsening symptoms was discussed. Departure - Departure Disposition: 01 Home, Self Care Clinical Impression: Low back pain Qualifiers: Chronicity: acute Back pain laterality: bilateral Sciatica presence: without sciatica Qualified Code(s): M54.50 - Low back pain, unspecified Condition: Stable Record reviewed to determine appropriate education?: Yes Instructions: ED Neck Back Pain General Follow-Up: Nasim Parra MD [Primary Care Provider] - Prescriptions: Cyclobenzaprine [Flexeril] 10 mg PO TID PRN #20 tablet PRN Reason: Spasms HYDROcod/ACETAM 5/325 [Tullos 5/325] 1 tablet PO BID PRN #15 tablet PRN Reason: Pain Comments: Kale as discussed at the bedside you seem to have a flare of nonspecific back pain now for several months. I recommend alternating Tylenol 500 mg 2-3 times a day with 600 mg of Motrin taken with food 2-3 times a day. Please follow very closely with your primary care doctor as you would likely benefit from referral to physical therapy. In general strengthening her core abdominal muscles can be helpful in dealing with chronic back pain as well as moderate weight loss. For more severe symptoms over the next several weeks I have written a prescription for some Tullos and narcotic as well as Flexeril a muscle relaxer. Please use these cautiously. You are typically not safe to drive if taking them. Return to the ER if you develop any numbness in your genital area or have loss of control of your bowel or bladder fluids. I am prescribing a short course of narcotic pain medication for you. These are potentially dangerous and addictive medications that should be used carefully. These medications may constipate you. Take an kciq-sso-jymzncu stool softener (docusate) twice daily with plenty of water while taking these medications. If you go 24 hours without a bowel movement, take wxgt-yfq-eqpuuqt miralax, per package instructions. Do not drink or drive while taking these medications. If you received narcotic or sedating medications while in the emergency department, do not drive for 24 hours. Store this medication in a safe, secure place and out of reach of children. It is a violation of federal law to give or sell this medication to another person or to use in a manner other than prescribed. The ED will not refill narcotic prescriptions, including prescriptions lost or stolen. To dispose of unwanted medications: 1. [facility] at [address] [facility] in [place] has a medication drop box. They accept prescription medications (in pill form) Tuesday through Tuesday 9:00 a.m. to 5:00 p.m. 2. [facility] accepts prescription medications (in pill form only) for disposal year round. Call for more information. 3. Contact the [facility] for the next [facility] sponsored prescription drug collection event. , [phone], or [phone]; Note that many narcotic pain relievers also contain Tylenol/acetaminophen. Please ensure that your total dose of acetaminophen from all sources does not exceed 3 g (3000 mg) per day.
== END 2022-12-25 14:49 | disposition home or self-care (01) ==
LOC: ED 13:19
DX: M54.50 Low back pain, unspecified (principal); Z87.891 Personal history of nicotine dependence
CPT/HCPCS: 99282; 99283

== ENCOUNTER 2023-01-04 10:46 | Outpatient (CLI) | payer MEDICAID ==
--- NOTE | 2023-01-04 17:57 | XRAY Report ---
PROCEDURE: Lumbar Spine 2 View INDICATIONS: LOW BACK PAIN TECHNIQUE: 3 views of the lumbar spine were acquired. COMPARISON: None. FINDINGS: Bones: 5 hop-dey-vkzdcwa vertebrae are present. There is normal bony alignment. No vertebral body compression fractures. No suspicious bony lesions. The disc heights are relatively well-preserved. Number lumbar spine facet arthropathy is seen. Soft tissues: Overlying bowel gas pattern is normal. No suspicious soft tissue calcifications. IMPRESSION: Degenerative changes are seen, with lower lumbar spine facet arthropathy. If it would be helpful for clinical management decision making, please consider a dedicated, schedule d lumbar MRI for further evaluation (assuming that there is no contraindication). Reviewed by: Philip Cisse MD on 01/04/2023 4:56 PM SANTOS Approved by: Philip Cisse MD on 01/04/2023 4:56 PM SANTOS Station ID: [id number]
== END 2023-01-04 10:47 | disposition home or self-care (01) ==
LOC: DI 10:46
PROVIDERS: ATTEND Internal Medicine
DX: M47.816 Spondylosis without myelopathy or radiculopathy, lumbar region (principal)

== ENCOUNTER 2023-03-29 20:38 | Emergency (ER) | payer MEDICAID ==
[2023-03-29 20:59] VITALS: BP 160/80; O2SAT 99
--- NOTE | 2023-03-29 22:00 | ED Physician Documentation ---
PD ABDULLAHI HEENT - Stated complaint Stated Complaint: LT EAR PX/HARD TO HEAR - Chief complaint Chief Complaint: Heent - History obtained from History obtained from: Patient - Additional information Additional information: Patient reports left ear pain has been ongoing since March 13. He denies any trauma or any recent upper respiratory infection symptoms. He does report that he has chronic allergies but he takes a daily montelukast for this. He has had no history of ear infections before, no drainage to his left ear. He was really worried about possible cerumen impaction so he has been using Debrox eardrops to the left ear feels like he has been able to get some earwax out says that his pain is very minimal but given that he has some decreased hearing to the left ear " sounds like I am underwater" and the fact that he has been playing with his ear a lot with trying to get earwax out picking at it frequently he wanted to come in and get another evaluation. He had an appoint with his PCP that he was unable to get to which is what limits him to the emergency department today. He has no mastoiditis no recent fevers or chills no jaw trismus. " PD PAST MEDICAL HISTORY - Past Medical History Past Medical History: Yes Cardiovascular: Hypertension Respiratory: Asthma, Sleep apnea, CPAP use Neuro: None Endocrine/Autoimmune: None GI: None : None HEENT: None Psych: Anxiety Musculoskeletal: None Derm: None - Past Surgical History Past Surgical History: Yes Ortho: Arthroscopic surgery, Other - Present Medications Home Medications: Ambulatory Orders Medication Instructions Recorded Confirmed Cetirizine [ZyrTEC] 1 tab PO DAILY 12/07/15 05/03/22 Chlorthalidone 25 mg PO DAILY 07/21/21 05/03/22 Escitalopram [Lexapro] 10 mg PO DAILY 07/21/21 05/03/22 Fluticasone/Salmeterol [Advair 1 each INH DAILY 07/21/21 12/25/22 250-50 Diskus] Montelukast [Singulair] 10 mg PO QPM 01/25/22 05/03/22 Albuterol Sulf [Ventolin Hfa 1 - 2 puffs INH Q4HR PRN #1 each 01/31/22 12/25/22 Inhaler] hydroCHLOROthiazide 50 mg ORAL DAILY 02/13/23 10/07/23 [Hydrochlorothiazide] Cyclobenzaprine [Flexeril] 10 mg PO TID PRN #20 tablet 12/25/22 HYDROcod/ACETAM 5/325 [[place] 5/325] 1 tablet PO BID PRN #15 tablet 12/25/22 Neomycin/Polymyx/Hc Otic Drops 4 drops OT QID 7 Days #10 ml 03/29/23 [Cortisporin Ear Susp] - Allergies Allergies/Adverse Reactions: Allergies Allergy/AdvReac Type Severity Reaction Status Date / Time oregano Allergy Rash Verified 03/29/23 20:52 - Social History Does the pt smoke?: No Smoking Status: Never smoker Does the pt drink ETOH?: Yes Does the pt have substance abuse?: Yes - Immunizations Immunizations are current?: Yes - POLST Patient has POLST: No PD ED PE NORMAL - Vitals Vital signs reviewed: Yes - General General: Alert and oriented X 3, No acute distress - HEENT HEENT: Atraumatic - Free text exam Free text exam: Right ear: Normal TM, no erythema, external ear canal also normal, no tragus tenderness, Left ear: mild cerumen, external ear appears erythematous, no bulging TM, no injected TM Results - Vitals Vitals: Vital Signs - 24 hr 03/29/23 20:52 Temperature 36.6 C Heart Rate 90 Respiratory 18 Rate Blood Pressure 160/80 H O2 Saturation 99 Oxygen O2 Source Room air PD Medical Decision Making - ED course ED course: 38-year-old male presents the emergency department for left ear pain. I do not see any obvious signs of acute otitis media, no bulging TM, TM overall normal bilaterally. In regards to what patient describes as hearing loss to the left ear, he could have had an upper respiratory infection or this could be related to his allergies but I do not see any obvious acute otitis media at this time. Patient was told that he can take something like a decongestant ytzm-kby-axqpzhx such as Sudafed or short course of Flonase to help with this congested feeling in his left ear. His external ear does appear to be quite irritated which does not surprise me given the fact the patient has been reportedly picking at it frequently try to get earwax out. I will send a prescription of eardrops to his preferred pharmacy that has steroids in it to help with the inflammation as well as the irritation, I prescribed polymyxin B/neomycin/hydrocortisone drops, no concern of ruptured TM. Departure - Departure Disposition: 01 Home, Self Care Clinical Impression: Acute infection of external ear Qualifiers: Laterality: left Qualified Code(s): H60.392 - Other infective otitis externa, left ear Condition: Good Instructions: ED Otitis Externa Prescriptions: Neomycin/Polymyx/Hc Otic Drops [Cortisporin Ear Susp] 4 drops OT QID 7 Days #10 ml Comments: Thank you for trusting us with your care I have sent a prescription of eardrops to [facility] in [place]. Pick this up tomorrow and you will take this 4 times a day in your left ear for the next 7 days. If after 3 to 4 days the pain has significantly improved you do not need to complete it for a total of 7 days. If your pain gets any worse after 2 days please follow-up with your primary care provider for further evaluation of possible oral antibiotics. Keep your ear dry with a cottonball while you are showering. Please come back to the emergency department if you are starting to experience any fevers, chills, jaw pain, inability to open jaw entirely, or any other concerning or worsening symptoms. Wishing a speedy recovery. Forms: PCP List Discharge Date/Time: 03/29/23 22:13
== END 2023-03-29 22:13 | disposition home or self-care (01) ==
LOC: ED 20:38
DX: H60.392 Other infective otitis externa, left ear (principal)
CPT/HCPCS: 99282; 99283

== ENCOUNTER 2023-04-30 16:31 | Emergency (ER) | payer MEDICAID ==
[2023-04-30 17:12] LABS: RAPID STREP SCREEN Negative (Negative)
--- NOTE | 2023-04-30 17:29 | ED Physician Documentation ---
PD HPI URI - Stated complaint Stated Complaint: FEVER/THROAT PX/ABD PX - Chief complaint Chief Complaint: General - History obtained from History obtained from: Patient - Additional information Additional information: Patient is a 38-year-old male with a history of asthma presenting for evaluation of nasal congestion, fever, cough. His symptoms been ongoing for 3 days. He says initially in the course he was having a sore throat but that seems to have improved.He did initially have an episode of emesis a few days ago but that is also improved. His son tested positive for strep at the walk-in clinic today. Patient has been using emhu-mid-hmyvxvw TheraFlu type medication for fevers. Reports the cough is worse at night. No abdominal pain. No chest pain or shortness of air.Also reports feeling like his left ear is underwater. No pain. Has recently been on an antibiotic course for a left ear infection which included oral antibiotics as well as a combination steroid and Antibiotic drops for the ear. Review of Systems Constitutional: reports: Fever Ears: reports: Ear pain Nose: reports: Congestion Throat: reports: Sore throat GI: denies: Abdominal Pain : denies: Dysuria PD PAST MEDICAL HISTORY - Past Medical History Past Medical History: Yes Cardiovascular: Hypertension Respiratory: Asthma, Sleep apnea, CPAP use Neuro: None Endocrine/Autoimmune: None GI: None : None HEENT: None Psych: Anxiety Musculoskeletal: None Derm: None - Past Surgical History Past Surgical History: Yes Ortho: Arthroscopic surgery, Other - Present Medications Home Medications: Ambulatory Orders Medication Instructions Recorded Confirmed Cetirizine [ZyrTEC] 1 tab PO DAILY 12/07/15 05/03/22 Chlorthalidone 25 mg PO DAILY 07/21/21 05/03/22 Escitalopram [Lexapro] 10 mg PO DAILY 07/21/21 05/03/22 Fluticasone/Salmeterol [Advair 1 each INH DAILY 07/21/21 12/25/22 250-50 Diskus] Montelukast [Singulair] 10 mg PO QPM 01/25/22 05/03/22 Albuterol Sulf [Ventolin Hfa 1 - 2 puffs INH Q4HR PRN #1 each 01/31/22 12/25/22 Inhaler] hydroCHLOROthiazide 50 mg ORAL DAILY 05/03/22 12/25/22 [Hydrochlorothiazide] Cyclobenzaprine [Flexeril] 10 mg PO TID PRN #20 tablet 12/25/22 HYDROcod/ACETAM 5/325 [[place] 5/325] 1 tablet PO BID PRN #15 tablet 12/25/22 Neomycin/Polymyx/Hc Otic Drops 4 drops OT QID 7 Days #10 ml 03/29/23 [Cortisporin Ear Susp] - Allergies Allergies/Adverse Reactions: Allergies Allergy/AdvReac Type Severity Reaction Status Date / Time oregano Allergy Rash Verified 04/30/23 16:36 - Social History Does the pt smoke?: No Smoking Status: Never smoker Does the pt drink ETOH?: Yes Does the pt have substance abuse?: Yes - Immunizations Immunizations are current?: Yes - POLST Patient has POLST: No PD ED PE NORMAL - General General: Alert and oriented X 3, No acute distress, Well developed/nourished - HEENT HEENT: Atraumatic, Moist mucous membranes, Pharynx benign (No oral swelling, erythema or exudate), Other (Mild left serous otitis, normal TM on the right; Significant rhinorrhea) - Neck Neck: Supple, no meningeal sign - Cardiac Cardiac: RRR, Strong equal pulses - Respiratory Respiratory: No respiratory distress, Clear bilaterally - Abdomen Abdomen: Soft, Non tender - Derm Derm: Warm and dry - Neuro Neuro: Normal speech Results - Vitals Vitals: Vital Signs - 24 hr 04/30/23 04/30/23 16:36 17:40 Temperature 36.6 C Heart Rate 99 92 Respiratory 16 16 Rate Blood Pressure 160/90 H 158/92 H O2 Saturation 96 97 Oxygen O2 Source Room air - Labs Labs: Laboratory Tests 04/30/23 04/30/23 16:53 16:53 Nasal Adenovirus (PCR) NOT DETECTED Nasal B. parapertussis DNA (PCR) NOT DETECTED Nasal Coronavir 229E PCR NOT DETECTED Nasal Coronavir HKU1 PCR NOT DETECTED Nasal Coronavir NL63 PCR NOT DETECTED Nasal Coronavir OC43 PCR NOT DETECTED Nasal Enterovir/Rhinovir PCR NOT DETECTED Nasal Influ A H1 2009 PCR DETECTED A Nasal Influenza B PCR NOT DETECTED Nasal Parainfluen 1 PCR NOT DETECTED Nasal Parainfluen 2 PCR NOT DETECTED Nasal Parainfluen 3 PCR NOT DETECTED Nasal Parainfluen 4 PCR NOT DETECTED Nasal RSV (PCR) NOT DETECTED Nasal B.pertussis DNA PCR NOT DETECTED Nasal C.pneumoniae (PCR) NOT DETECTED Prashanth Human Metapneumo PCR NOT DETECTED Nasal M.pneumoniae (PCR) NOT DETECTED Nasal SARS-CoV-2 (PCR) NOT DETECTED Group A Strep Rapid Negative PD Medical Decision Making - ED course Complexity details: reviewed results, d/w patient ED course: Pt with URI symptoms for few days including sore throat (although that has improved). Child at home was strep +. VSS. Lungs clear. Non labored breathing. Oropharynx without exudate or swelling. Rapid strep negative. Suspect viral etiology. Discussed continued supportive care as well as concerning symptoms to return for. resp swab was pending at discharge but is Flu +. Departure - Departure Disposition: 01 Home, Self Care Clinical Impression: Upper respiratory infection with cough and congestion Condition: Stable Instructions: ED URI Viral Comments: Your rapid strep test is negative. We will send this for culture Notify you if you would need an antibiotic and send this in. Your respiratory panel is pending. This will check for COVID, influenza, RSV and a number of other common cold viruses. We will notify you if it is positive for COVID. Otherwise you can check the patient portal for your results. You should quarantine from others until you know your COVID result. Please continue with acetaminophen or ibuprofen as needed for fevers and body aches, plenty of fluids/hydration and rest. Return to the ER with any worsening symptoms such as difficulty breathing or vomiting. I would recommend trialing a course of Flonase which is a steroid nasal spray along with saline sprays In the nose to help with congestion. Forms: PCP List, Activity restrictions Discharge Date/Time: 04/30/23 17:41
[2023-04-30 17:49] VITALS: BP 158/92; O2SAT 97
[2023-04-30 17:51] LABS: B. PARAPERTUSSIS- RESP PCR PAN NOT DETECTED; B. PERTUSSIS- RESP PCR PANEL NOT DETECTED; C. PNEUMONIAE- RESP PCR PANEL NOT DETECTED; CORONAVIRUS 229E-RESP PCR NOT DETECTED; CORONAVIRUS HKU1-RESP PCR NOT DETECTED; CORONAVIRUS NL63-RESP PCR NOT DETECTED; CORONAVIRUS OC43-RESP PCR NOT DETECTED; HUMAN METAPNEUMOVIRUS NOT DETECTED; INFLUENZA A H1 2009- RESP PCR DETECTED; INFLUENZA B - RESP PCR PANEL NOT DETECTED; M. PNEUMONIAE- RESP PCR PANEL NOT DETECTED; PARAINFLUENZA VIRUS 1 NOT DETECTED; PARAINFLUENZA VIRUS 2 NOT DETECTED; PARAINFLUENZA VIRUS 3 NOT DETECTED; PARAINFLUENZA VIRUS 4 NOT DETECTED; RHINOVIRUS/ENTEROVIRUS NOT DETECTED; RSV- RESP PCR PANEL NOT DETECTED; SARS-CoV-2 -RESP PCR PANEL NOT DETECTED
== END 2023-04-30 17:41 | disposition home or self-care (01) ==
LOC: ED 16:31
DX: J06.9 Acute upper respiratory infection, unspecified (principal); I10 Essential (primary) hypertension; J45.909 Unspecified asthma, uncomplicated; G47.30 Sleep apnea, unspecified; Z79.899 Other long term (current) drug therapy
CPT/HCPCS: 87070; 87430; 87633; 99283